=== PATIENT | female | born 1985 | race African-American/Black ===

== ENCOUNTER 2017-03-25 16:12 | Emergency (ER) | payer OTHER ==
[~2017-03-25] VITALS: Ht 162.6 cm; Wt 107.7 kg
[2017-03-25 16:15] VITALS: TEMP 37; Ht 162.6 cm; Wt 107.7 kg
[2017-03-25] MEDS ORDERED: PIPERACILLIN/TAZOBACTAM 4.5 GM/100ML D5W IV STA (16:45)
[2017-03-25] MEDS ORDERED: VNTHFA/IN INH (16:48)
[2017-03-25] MEDS ORDERED: SYMIN/8045 INH (16:48)
[2017-03-25] MEDS ORDERED: CYCL-376 PO (16:48)
[2017-03-25] MEDS ORDERED: TRAZ50TA35 PO (16:48)
[2017-03-25] MEDS ORDERED: SERT50TA PO (16:48)
[2017-03-25] MEDS ORDERED: OXYC-57 PO (16:48)
[2017-03-25] MEDS ORDERED: MELO7.5T5 PO (16:48)
[2017-03-25] MEDS ORDERED: MONT1TAB3 PO (16:48)
[2017-03-25] MEDS ORDERED: MULT-506 PO (16:49)
[2017-03-25 16:52] LABS: COMPLETE YES; EOS % 1.8 %; HEMATOCRIT 36.5 % (37-47); IG% 0.2 %; LYMPH % 43.7 %; LYMPH ABS # 2.16 K/uL (1.2-3.4); MEAN CELL VOLUME 96.8 fL (80-100); MEAN CORPUSCULAR HEMOGLOBIN 33.4 pg (25-34); MEAN CORPUSCULAR HGB CONC 34.5 g/dl (32-36); MEAN PLATELET VOLUME 8.1 fL (7.4-10.4); MONO % 5.3 %; PLATELET COUNT 449 K/uL (130-400); RED BLOOD COUNT 3.77 M/uL (4.2-5.4); WHITE BLOOD COUNT 4.94 K/uL (4.8-10.8)
[2017-03-25 17:12] LABS: C-REACTIVE PROTEIN 1.16 mg/dl (0-0.29); CALCIUM 8.8 mg/dl (8.5-10.1); CREATININE 0.71 mg/dl (0.60-1.20); POTASSIUM 3.8 mmol/L (3.5-5.1)
--- NOTE | 2017-03-25 17:22 | DIAGNOSTIC IMAGING REPORT ---
LEFT FINGER(S) MIN 2 VIEWS ROUTINE CLINICAL HISTORY: 31 years-old Female presenting with L index finger cat bite. TECHNIQUE: Frontal, oblique, and lateral views of the second left finger were obtained. COMPARISON: None. FINDINGS: No soft tissue abnormality or soft tissue emphysema is appreciable. No acute fracture or malalignment. IMPRESSION: No acute osseous injury of the left second finger. Electronically signed by: Perry Jimenes M.D. 03/25/2017 5:21 PM Dictated Date/Time: 03/25/2017 5:20 PM
[2017-03-25 17:49] VITALS: BP 143/98; PULSE 73; O2SAT 100
--- NOTE | 2017-03-27 11:29 | EMERGENCY ROOM VISIT NOTE ---
ED Visit Note First contact with patient: 16:19 Chief Complaint: My cat bit my left index finger. History of Present Illness: Ms. Muñoz is a 31-year-old white female who ambulates into the ED complaining of a cat bite to the distal aspect of the left index finger. Patient reports 3 days ago her immunized cat bit her left index finger. She was seen at a local urgent care center and prescribed Augmentin. She reports since that time she does not feel like her finger is healing well and is expressing concerns about a possible infection even though she is on antibiotics. Currently she is complaining of a throbbing and pressure sensation over the distal aspect of the left index finger. She rates her discomfort 5/10. The pain is nonradiating. Her pain worsens with palpation and flexion and extension of the index fingers DIP joint. She has not identified any alleviating factors related to the pain. She reports she has been taken ibuprofen without relief of her discomfort. Additionally patient reports she has been squeezing her finger and has been expressing pus like material out of one of her puncture wounds. Associated with her pain she reports she has been having chills but no jenifer fever. She denies headache, dizziness, lightheadedness, upper respiratory tract symptoms, decreased appetite, abdominal pain, nausea, vomiting, extremity weakness/numbness/tingling. Review of Systems: As noted above in history of present illness. 8 body systems were reviewed and found to be negative as noted above. Past Medical History: Asthma, bronchitis, pneumonia. Current Medications: Medications Dose Route/Sig Max Daily Dose Days Date Category Dose Instructions Multivitamin (Multivitamins) Tab 1 Tab PO DAILY 03/25/17 Reported Percocet 5MG/325MG (Oxycodone/Acetaminophen) Tab 0.5-1 Tablet PO Q12 PRN 03/25/17 Reported PAIN Mobic (Meloxicam) 7.5 Mg Tab 7.5 Mg PO Q12 PRN 03/25/17 Reported Trazodone (Trazodone HCl) Unknown Strength Tab 1 Tab PO QPM PRN 03/25/17 Reported Cyclobenzaprine Hcl Unknown Strength Tab Unknown Dose PO QPM PRN 03/25/17 Reported Ventolin Hfa (Albuterol) 200 Puffs/67434 Mcg Aers 1 Puff INH DAILY PRN 03/25/17 Reported Symbicort 80/4.5 Inhaler (Budesonide/Formoterol Fumarate) Aero 1 Puff INH BID 03/25/17 Reported Zoloft (Sertraline HCl) Unknown Strength Tab 1 Tab PO QPM 30 03/25/17 Reported Singulair (Montelukast Sodium) 10 Mg Tab 10 Mg PO QPM 03/25/17 Reported Allergies to Medications: Patient denies. Social History: Patient is currently employed; she feels safe in her home environment; she denies tobacco use and admits to social alcohol use. Physical Examination: Vital Signs: Date Time Temp Pulse Resp B/P (MAP) Pulse Ox O2 Delivery O2 Flow Rate FiO2 03/25/17 17:49 73 20 143/98 100 03/25/17 16:15 37.0 59 18 130/84 96 Room Air GENERAL: 31-year-old female in mild distress due to pain, nontoxic-appearing, afebrile and hemodynamically stable. NEUROLOGICAL: Awake, alert and oriented to person, place and time. Answering questions appropriately and following commands. Normal gait. Good hand eye coordination. No focal motor sensory deficits. SKIN: Warm, dry and pink. Left Index Finger: 2 puncture wounds noted over the distal phalanx. Surrounding the distal finger there is mild erythema and edema. No blood or pus under the nail. No lymphangitis. HEENT: Atraumatic and normocephalic. THORAX: Lungs sounds are clear to auscultation and equal bilaterally with symmetrical chest wall. ABDOMEN: Flat, soft and nontender. Positive bowel sounds in all quadrants. LEFT UPPER EXTREMITY: Hand: No gross bony deformity. Soft tissue injuries as noted above. No tenderness or bony deformity over the DIP joint. Mild tenderness of the extensor tendon as you palpate up the finger to the mid hand. There is no erythema or edema over the tendon. Throughout the finger the skin was warm and pink and capillary refill is brisk. She was able to distinguish light sensations through all dermatomes. ED Course: Patient is assessed as noted above. Patient's medication list was reviewed. Laboratory Testing: Test 03/25/17 16:43 Range/Units White Blood Count 4.94 4.8-10.8 K/uL Red Blood Count 3.77 4.2-5.4 M/uL Hemoglobin 12.6 12.0-16.0 g/dL Hematocrit 36.5 37-47 % Mean Corpuscular Volume 96.8 80-100 fL Mean Corpuscular Hemoglobin 33.4 25-34 pg Mean Corpuscular Hemoglobin Concent 34.5 32-36 g/dl Platelet Count 449 130-400 K/uL Mean Platelet Volume 8.1 7.4-10.4 fL Neutrophils (%) (Auto) 49.0 % Lymphocytes (%) (Auto) 43.7 % Monocytes (%) (Auto) 5.3 % Eosinophils (%) (Auto) 1.8 % Basophils (%) (Auto) 0.0 % Neutrophils # (Auto) 2.42 1.4-6.5 K/uL Lymphocytes # (Auto) 2.16 1.2-3.4 K/uL Monocytes # (Auto) 0.26 0.11-0.59 K/uL Eosinophils # (Auto) 0.09 0-0.5 K/uL Basophils # (Auto) 0.00 0-0.2 K/uL RDW Standard Deviation 43.3 36.4-46.3 fL RDW Coefficient of Variation 12.2 11.5-14.5 % Immature Granulocyte % (Auto) 0.2 % Immature Granulocyte # (Auto) 0.01 0.00-0.02 K/uL Erythrocyte Sedimentation Rate 27 0-21 mm/hr Sodium Level 138 136-145 mmol/L Potassium Level 3.8 3.5-5.1 mmol/L Chloride Level 106 98-107 mmol/L Carbon Dioxide Level 26 21-32 mmol/L Anion Gap 6.0 3-11 mmol/L Blood Urea Nitrogen 14 7-18 mg/dl Creatinine 0.71 0.60-1.20 mg/dl Est Creatinine Clear Calc Drug Dose 135.1 ml/min Estimated GFR () 129.7 Estimated GFR (Non- 111.9 BUN/Creatinine Ratio 20.0 10-20 Random Glucose 87 70-99 mg/dl Calcium Level 8.8 8.5-10.1 mg/dl C-Reactive Protein 1.16 0-0.29 mg/dl Left Index Finger X-Rays: Were read by myself and the radiologist and shows no acute fractures or dislocations. No soft tissue abnormality or emphysema. An IV lock was initiated and patient received 4.5 g of Zosyn IV for antibiotic coverage. Patient was offered pain medications and refused. Patient's index finger was placed in a metal splint. Patient's case was reviewed with Dr. Victor; we agreed on diagnostic approach , treatment, disposition and plan. Patient was educated about today's findings and instructed on her treatment plan ; she verbalizes understanding and agreement with this plan. Clinical Impression: Left index finger cat bite. Decision-Making: Initially my differential diagnosis I considered cat bite cellulitis, foreign body, tenosynovitis, paronychia and other causes. Disposition: Patient discharged home in stable condition; prior to departure she was reassessed and subjectively reported she was feeling the same. Plan: Patient was encouraged to alternate ibuprofen and acetaminophen as needed for pain. Patient was encouraged to continue her antibiotics until completed. Patient was encouraged to use her finger splint until recheck. Patient was encouraged to avoid cleaning with peroxide and use simple soap and water. Patient was encouraged to stop squeezing or fingers. Patient was educated on signs of worsening infection. Patient was encouraged to return to the ED in 36-48 hours for recheck. Patient was encouraged return to the ED sooner for worsening signs of infection or any new/concerning symptoms.
== END 2017-03-25 17:48 | disposition home or self-care (01) ==
LOC: C.EDB 16:13 → C.EDD 17:48
DX: S61.251D Open bite of left index finger without damage to nail, subsequent encounter (principal); W55.01XA Bitten by cat, initial encounter; J45.909 Unspecified asthma, uncomplicated; Z87.01 Personal history of pneumonia (recurrent); Z79.899 Other long term (current) drug therapy

== ENCOUNTER 2017-03-28 15:26 | Emergency (ER) | payer OTHER ==
[~2017-03-28] VITALS: Ht 163.8 cm; Wt 109.0 kg
[~2017-03-28 15:26] MED LIST: CYCL-376 PO; MELO7.5T5 PO; MONT1TAB3 PO; MULT-506 PO; OXYC-57 PO; SERT50TA PO; SYMIN/8045 INH; TRAZ50TA35 PO; VNTHFA/IN INH
[2017-03-28 15:28] VITALS: BP 138/90; PULSE 73; TEMP 37; O2SAT 99; Ht 163.8 cm; Wt 109.0 kg
[2017-03-28] MEDS ORDERED: AMOX875T PO (15:51)
--- NOTE | 2017-03-29 16:05 | EMERGENCY ROOM VISIT NOTE ---
ED Visit Note First contact with patient: 15:31 Chief Complaint: Cat bite wound follow-up. History of Present Illness: Ms. Muñoz is a 31-year-old white female who ambulates into the ED for recheck of her cat bite wound to her left index finger. I had seen this patient 2 days ago. She subjectively reports she is feeling better today. She had noted decreased swelling and redness of the distal phalanx of the index finger and a decrease in pain. Currently she describes her pain as a pressure sensation over the distal phalanx of the left index finger. She rates her discomfort 3/10. Her pain is no longer radiating of the posterior finger and into the hand. Her pain worsens with palpation. She has not been taken any medications for pain prior to arrival at the hospital. She denies any associated symptoms including fevers , chills, sweats, worsening drainage,, decreased appetite, nausea/vomiting, finger weakness/numbness/tingling. Review of Systems: As noted above in history of present illness. 5 body systems were reviewed and found to be negative as noted above. Past Medical History: Asthma, bronchitis, pneumonia. Current Medications: Augmentin, Singulair, albuterol, trazodone, cyclobenzaprine , trazodone, meloxicam, Percocet. Allergies to Medications: Patient denies. Social History: Patient is employed; she feels safe in her home environment; she denies tobacco use. Physical Examination: Vital Signs: Date Time Temp Pulse Resp B/P (MAP) Pulse Ox O2 Delivery O2 Flow Rate FiO2 03/28/ 15:28 37.0 73 20 138/90 99 Room Air GENERAL: 31-year-old female in mild distress due to pain, nontoxic-appearing, afebrile and hemodynamically stable. NEUROLOGICAL: Awake, alert and oriented to person, place and time. Answering questions appropriately and following commands. SKIN: Warm, dry and pink. Left Index Finger: No gross bony deformity. Improvement in edema and erythema surrounding the base of the fingernail. No purulent drainage from her puncture wounds. No lymphangitis. ED Course: Patient is assessed as noted above. Patient's medication list was reviewed. Patient was educated about today's findings and instructed on her treatment plan ; she verbalized understanding and agreement with this plan. Clinical Impression: Improving cat bite infection to the left index finger. Disposition: Patient discharged home in stable condition; prior to departure she was reassessed and subjectively reported she was feeling the same. Plan: Patient was encouraged to continue her current treatment plan and her personal medications as prescribed. Patient was encouraged to follow-up with her PCP at the end of the course of antibiotics. Patient was encouraged return ED for worsening signs of infection or any new/ concerning symptoms.
== END 2017-03-28 16:04 | disposition home or self-care (01) ==
LOC: C.EDB 15:28 → C.EDD 16:04
DX: Z09 Encounter for follow-up examination after completed treatment for conditions other than malignant neoplasm (principal); L08.9 Local infection of the skin and subcutaneous tissue, unspecified; S61.251D Open bite of left index finger without damage to nail, subsequent encounter; W55.01XD Bitten by cat, subsequent encounter; J45.909 Unspecified asthma, uncomplicated; Z87.01 Personal history of pneumonia (recurrent); Z79.899 Other long term (current) drug therapy

== ENCOUNTER → 2017-07-13 | Outpatient (CLI) | payer OTHER | END | disposition home or self-care (01) | LOC: C.PAPS 10:00 | PROVIDERS: ATTEND Obstetrics & Gynecology | DX: Z12.4 Encounter for screening for malignant neoplasm of cervix (principal) ==

== ENCOUNTER 2017-08-22 18:07 | Emergency (ER) | payer OTHER ==
[~2017-08-22] VITALS: Ht 162.6 cm; Wt 104.8 kg
[2017-08-22 18:27] VITALS: TEMP 37; Ht 162.6 cm; Wt 104.8 kg
[2017-08-22] MEDS ORDERED: DEXAMETHASONE SOD INJ 4 MG/ML 5 ML VIAL IM STA (18:41)
[2017-08-22] MEDS ORDERED: KETOROLAC TROMETHAMINE 60 MG/2 ML VIAL IM STA (18:41)
[2017-08-22] MEDS ORDERED: MOME200A INH (19:01)
[2017-08-22] MEDS ORDERED: NAPR1TAB9 PO (19:01)
[2017-08-22] MEDS ORDERED: ACET-1256 PO (19:01)
[2017-08-22] MEDS ORDERED: [UNRECOGNIZED DRUG - CODE] TOP (19:01)
[2017-08-22] MEDS ORDERED: MELO15TA4 PO (19:01)
[2017-08-22] MEDS ORDERED: CYCL10TA6 PO (19:01)
[2017-08-22] MEDS ORDERED: DEXAMETHASONE SOD INJ 10 MG/ML VIAL IM ONE (19:15)
--- NOTE | 2017-08-22 19:44 | EMERGENCY ROOM VISIT NOTE ---
ED Visit Note First contact with patient: 18:31 CHIEF COMPLAINT: Low back pain HISTORY OF PRESENT ILLNESS: This 32-year-old female presents the ER with chief complaint of increased low back pain radiating into her left leg. The patient states that she has chronic low back pain for which she doing physical therapy for currently. The patient states last night she felt a sharp pain in her left buttocks and pain radiating into her hip and partially down her posterior leg. The patient denies any numbness and tingling in the leg. She states the pain also radiates across her lower back to the right side. The patient denies any right leg pain or numbness and tingling. The patient denies a loss of bowel or bladder control or any saddle anesthesia. The patient denies any urinary symptoms or any history of kidney stones. The patient denies any nausea or vomiting. The patient states she took a muscle relaxer last night and this morning without any relief. She has not taken anything else for pain. REVIEW OF SYSTEMS: 6 system review was performed and was negative unless stated otherwise in history of present illness. PMH: The patient is healthy; chronic back pain asthma, ovarian cysts SOCIAL HISTORY: Patient lives alone. The patient denies any tobacco use but admits to occasional alcohol use. PHYSICAL EXAM: Vital Signs normal: Reviewed Nurse's notes and agree. GEN.: 32- year-old female appears in no acute distress. MENTAL STATUS: Alert and oriented in no acute distress. BACK: No CVA tenderness noted. ABDOMEN: Positive bowel sounds all 4 quadrants soft, nontender to palpation without megaly or masses. LUMBAR SPINE: No gross bony abnormality noted. Patient is nontender to palpation over the spinous processes. She is tender to palpation over the left paravertebral region, right side nontender. She has limited range of motion with flexion and extension.. Muscle strength is 5 out of 5 bilateral lower extremities and symmetrical. NEURO: Patient is able to heel and toe walk without difficulty. I lateral patellar and Achilles reflexes are 2+. Sensation is intact to pinprick bilateral lower extremities. Negative straight leg raise bilaterally. EMERGENCY DEPARTMENT COURSE: The patient was evaluated. The patient was given Toradol 60 mg IM and Decadron 10 mg IM. The patient was reevaluated and was feeling better. The patient was discharged home in stable condition. DIAGNOSIS: Low back pain with left sciatica DISCHARGE INSTRUCTIONS AND TREATMENT: Take Decadron as prescribed. Ibuprofen 600 mg every 6 hours with food for pain. Take Monitor as needed for more severe pain. If symptoms persist or worsen, follow-up with your family doctor. Current/Historical Medications Scheduled Montelukast Sodium (Singulair), 10 MG PO QPM Sertraline (Zoloft), 50 MG PO QPM Scheduled PRN Acetaminophen (Tylenol), 1,000 MG PO Q6H PRN for Pain Albuterol Hfa (Ventolin Hfa), 2 PUFFS INH QID PRN for Wheezing Budesonide/Formoterol Fumarate (Symbicort 80/4.5 Inhaler), 1 PUFF INH BID PRN for Shortness of Breath Cyclobenzaprine Hcl (Flexeril), 10 MG PO TID PRN for Muscle Spasm Meloxicam (Mobic), 15 MG PO DAILY PRN for Pain Metronidazole (Topical) (Rosadan), 1 APPLN TOP BID PRN for Rosacea Mometasone Furoate-Formoterol (Dulera 200/5 Mcg), 2 PUFFS INH BID PRN for SOB/ Wheezing Naproxen (Aleve), 220 MG PO UD PRN for Pain Trazodone Hcl (Trazodone), 50 MG PO HS PRN for Sleep Allergies Coded Allergies: No Known Allergies (Unverified , 03/28/17) Vital Signs Date Time Temp Pulse Resp B/P (MAP) Pulse Ox O2 Delivery O2 Flow Rate FiO2 08/22/17 18:27 37.0 85 18 151/79 99 Room Air Medications Administered Medications (Trade) Dose Ordered Sig/Regina Route Start Time Stop Time Status Last Admin Dose Admin Ketorolac Tromethamine (Toradol Inj) 60 mg NOW STAT IM 08/22/17 18:41 08/22/17 18:42 DC 08/22/17 19:27 60 MG Dexamethasone Sodium Phosphate (Decadron Inj) 10 mg NOW ONCE IM 08/22/17 19:15 08/22/17 19:16 DC 08/22/17 19:27 10 MG Departure Information Referrals No Doctor, Assigned (PCP) Patient Instructions [facility]
[2017-08-22] MEDS ORDERED: HYDR-5688 PO (19:52)
[2017-08-22] MEDS ORDERED: METH4PAK PO (19:52)
[2017-08-22 20:06] VITALS: BP 150/97; PULSE 73; O2SAT 100
== END 2017-08-22 20:06 | disposition home or self-care (01) ==
LOC: C.EDB 18:08 → C.EDD 20:06
DX: M54.42 Lumbago with sciatica, left side (principal)

== ENCOUNTER → 2017-09-02 | Outpatient (CLI) | payer OTHER ==
[~2017-09-02] MED LIST changes: +ACET-1256 PO; -CYCL-376 PO; +CYCL10TA6 PO; +HYDR-5688 PO; +MELO15TA4 PO; -MELO7.5T5 PO; +MOME200A INH; -MULT-506 PO; +NAPR1TAB9 PO; -OXYC-57 PO; +[UNRECOGNIZED DRUG - CODE] TOP
== END | disposition home or self-care (01) ==
LOC: C.LAB1850 15:16
PROVIDERS: ATTEND Physician Assistant
DX: N92.6 Irregular menstruation, unspecified (principal)

== ENCOUNTER → 2017-10-05 | Outpatient (CLI) | payer OTHER ==
[~2017-10-05] MED LIST changes: +MELO-84 PO; -MELO15TA4 PO
[2017-10-05 18:32] LABS: PROLACTIN 17.31 ng/mL
[2017-10-05 18:33] LABS: FOLLICLE STIMULAT HORMONE 1.99 IU/L; LUTEINIZING HORMONE 4.65 IU/L
== END | disposition home or self-care (01) ==
LOC: C.LAB 17:33
PROVIDERS: ATTEND Obstetrics & Gynecology
DX: N92.6 Irregular menstruation, unspecified (principal)

== ENCOUNTER → 2017-11-02 | Outpatient (CLI) | payer OTHER | END | disposition home or self-care (01) | LOC: C.LAB 18:02 | PROVIDERS: ATTEND Obstetrics & Gynecology | DX: E28.8 Other ovarian dysfunction (principal) ==

== ENCOUNTER → 2017-12-09 | Outpatient (CLI) | payer OTHER | END | disposition home or self-care (01) | LOC: C.LAB 15:54 | PROVIDERS: ATTEND Obstetrics & Gynecology | DX: E28.8 Other ovarian dysfunction (principal) ==

== ENCOUNTER → 2018-03-06 | Outpatient (CLI) | payer OTHER ==
[~2018-03-06] MED LIST changes: -HYDR-5688 PO
== END | disposition home or self-care (01) ==
LOC: C.LAB 18:09
PROVIDERS: ATTEND Obstetrics & Gynecology
DX: E28.8 Other ovarian dysfunction (principal)

== ENCOUNTER → 2018-03-20 | Outpatient (CLI) | payer OTHER ==
--- NOTE | 2018-03-20 12:34 | OPERATIVE REPORT ---
DATE OF OPERATION: 03/20/2018 PROCEDURE: Hysterosalpingogram. INDICATIONS FOR SURGERY: Severe dysmenorrhea, pelvic pain. PREOPERATIVE DIAGNOSIS: Suspected blockage of fallopian tubes. POSTOPERATIVE DIAGNOSIS: Same. SURGEON: Ildefonso Eric MD. ESTIMATED BLOOD LOSS: Zero. OPERATIVE FINDINGS AND PROCEDURE: Patient was brought to the fluoroscopy suite. The cervix was visualized with a speculum, it was cleaned with a Betadine solution, grasped with single tooth tenaculum at 12 o'clock. Uterus was sounded. We had difficulty getting the dye into the cervix. We had to make several attempts. I finally was able to get the dye into the uterine cavity. I descended uterine cavity but could not get any spillage on either side despite several attempts at doing it. There was some evidence of hydrosalpinx on the left. Patient tolerated procedure well, and was instructed to call the office for a followup visit. I attest to the content of the Intraoperative Record and any orders documented therein. Any exception s are noted below.
--- NOTE | 2018-03-20 12:37 | DIAGNOSTIC IMAGING REPORT ---
HYSTEROSALPINGOGRAM CLINICAL HISTORY: Infertility testing. COMPARISON STUDY: Pelvic ultrasound dated 09/14/2017. FINDINGS: Fluoroscopic assistance was provided to the simulation software engineer in performing a hysterosalpingogram. 8 spot fluoroscopic images were saved. The uterine cavity distends normally, with no filling defects identified. Contrast rapidly evacuated the uterine cavity into the cervix and there is only partial filling of the fallopian tubes. There is dilatation of the left fallopian tube. No spillage of contrast was identified into the pelvis. Fluoroscopy time: 0.9 minutes. IMPRESSION: 1. The uterine cavity was normal in appearance. 2. Contrast rapidly spilled from the uterine cavity back into the cervix, and there was only partial filling of the fallopian tubes. 3. The left fallopian tube appears dilated. 4. No spillage of contrast was identified into the pelvis. Patency of the tubes was not confirmed. Electronically signed by: Maik Escobar M.D. 03/20/2018 12:36 PM Dictated Date/Time: 03/20/2018 12:34 PM
== END | disposition home or self-care (01) ==
LOC: C.RAD 10:26
PROVIDERS: ATTEND Obstetrics & Gynecology
DX: N70.11 Chronic salpingitis (principal)

== ENCOUNTER 2023-08-10 09:42 | Observation (INO) ==
--- NOTE | 2023-08-10 10:14 | XRay Report ---
SINGLE VIEW CHEST CLINICAL HISTORY: Atypical chest pain. FINDINGS: An AP, portable, upright chest radiograph is compared to study dated 07/18/2023. The cardio mediastinal silhouette is unremarkable. The lungs and pleural spaces are clear. No pneumothorax is se en. The bony thorax is grossly intact. IMPRESSION: No active disease in the chest. ACT 112: Negative or not required by law. Electronically signed by: Maik Escobar M.D. 08/10/2023 10:13 AM
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
[2023-08-10 10:59] LABS: Basophils # (auto) 0.02 K/uL (0.00-0.20); Basophils % (auto) 0.4 %; Eosinophils # (auto) 0.03 K/uL (0.00-0.50); Eosinophils % (auto) 0.6 %; Hematocrit (blood only) 42.5 % (37.0-47.0); Hemoglobin 14.1 g/dl (12.0-16.0); Immature Granulocytes # (auto) 0.01 K/uL (0.01-0.20); Immature Granulocytes % (auto) 0.2 %; Lymphocytes # (auto) 1.15 K/uL (1.20-3.40); Lymphocytes % (auto) 22.4 %; Mean Corpuscular Hemoglobin 32.3 pg (25.0-34.0); Mean Corpuscular Hgb Conc 33.2 g/dL (32.0-36.0); Mean Corpuscular Volume 97.5 fL (80.0-100.0); Mean Platelet Volume 8.3 fL (9.4-12.4); Monocytes # (auto) 0.28 K/uL (0.11-0.59); Monocytes % (auto) 5.4 %; Neutrophils # (auto) 3.65 K/uL (1.40-6.50); Platelet Count 471 K/uL (130-400); RDW Standard Deviation 43.6 fL (36.4-46.3); Red Blood Count 4.36 M/uL (4.20-5.40); White Blood Count 5.14 K/ul (4.8-10.8)
[2023-08-10 11:23] LABS: Alanine Aminotransferase 15 U/L (7-52); Albumin Globulin Ratio 1.3 (0.9-2); Albumin Level 4.7 gm/dl (3.4-5.0); Alkaline Phosphatase 61 U/L (34-104); Anion Gap 8 (3-11); Aspartate Aminotransferase 17 U/L (13-39); Bilirubin,Total 0.6 mg/dl (0.2-1.0); Blood Urea Nitrogen 12 mg/dl (6-23); Calcium 9.2 mg/dl (8.6-10.3); Carbon Dioxide 24 mmol/L (21-32); Chloride 105 mmol/L (98-107); Creatinine Clr Calc Pharmacy 112.3 ml/min; Est GFR (African American) 115.6 ml/min; Est GFR (Non-African American) 99.7 ml/min; Globulin 3.6 gm/dl (2.5-4.0); Glucose 110 mg/dl (70-99(Fasting)); Potassium 3.7 mmol/L (3.5-5.1); Sodium 137 mmol/L (136-145); Total Protein 8.3 gm/dl (6.0-8.3)
[2023-08-10 11:28] LABS: Troponin I High Sensitivity < 2.3 pg/ml (0-14)
[2023-08-10 11:39] LABS: Prothrombin Time 11.4 Seconds (9.0-12.0)
[2023-08-10 11:46] LABS: Pregnancy Test, Serum Negative (Negative)
[2023-08-10] MEDS ORDERED: OPTIRAY 320 125ml IV ONE (12:23)
--- OUTSIDE RECORDS SUMMARY | 2023-08-10 12:35 | External Medical Summary | Summary of Care ---
Author Name Unknown Organization [facility] Address [address] [facility] [place] [address] Phone [phone] Care Team Providers Care Senior Technical Editor Name Role Phone Vashti Lucero DPRinku Primary Care Pr ovider Encounter Details Date Type Department Care Team (Late st Contact Info) Description 08/09/2023 Documentation Hematology/Oncology [facility] [address] [facility] [place] [address] Eren Velasco MD [address] [place] [address] Allergies Active Allergy Reactions Criticality Noted Date Comments Pollen Other (Please comment) 04/08/2023 Dust, mold Causes her asthma to flare up documented as of this encounter (statuses as of 08/09/2023) Medications Medication Sig Dispensed Refills Start Date End Date Status montelukast (SINGULAIR) 10 MG Tablet Take 1 tablet by mouth in the evening 5 10/30/2015 Active PROVENTIL HFA 108 (90 BASE) MCG/ACT inhaler Take 2 puffs every 4 to 6 hours as needed 4 08/28/2015 Active Multiple Vitamin (MULTI VITAMIN DAILY) TABS Take by mouth. 0 Active methocarbamol (ROBAMOL) 500 MG Tablet Take 1 Tablet by mouth in the morning and 1 Tablet at noon and 1 Tablet in the evening and 1 Tablet before bedtime. 0 Active Ferrous Sulfate 325 (65 Fe) MG Oral Tablet (Feosol) Take 1 Tablet by mouth daily with breakfast. 0 Active Fluticasone Propionate (Inhal) 100 MCG/BLIST Aerosol Powder Breath Activated Inhale 1 Puff by mouth in the morning and 1 Puff before bedtime. 0 Active busPIRone HCl 5 MG Oral Tablet (Buspar) 1 Tablet. 0 11/23/2022 Acti ve DULoxetine HCl 60 MG Oral Capsule Delayed Release Particles (Cymbalta) Take 1 Capsule by mouth in the morning. 0 Active Ondansetron 4 MG Oral Tablet Disintegrating (Zofran)Indications:Na usea vomiting and diarrhea Place 1 Tablet on tongue every 8 hours as needed for Nausea. dissolve on tongue. 20 Tablet 0 02/02/2023 Active documented as of this encounter (statuses as of 08/09/2023) Active Problems No known active problems documented as of this encounter (statuses as of 08/09/2023) Social History Tobacco Use Types Packs/Day Years Used Date Smoking Tobacco: Never Smokeless Tobacco: Never Alcohol Use Standard Drinks/Week Comments Yes 0 (1 standard drink = 0.6 oz pur e alcohol) social Sex and Gender Information Value Date Recorded Sex Assigned at Not on file Gender Identity Not on file Sexual Orientation Not on file Job Start Date Occupation Industry Not on file Not on file Not on file documented as of this encounter Progress Notes * Eren Velasco MD - 08/09/2023 3:52 PM EST Blood workup done on 07/18/2023: -WBC 4200, H&H of 12.8/38.4, Platelet count is around 484,000. -Ferritin level --> 73 -Serum iron 84, TIBC 322, iron saturation 26% Overall mild thrombocytosis for the last several years, no evidence of iron deficiency Will repeat CBCD, Ferritin, iron profile in about 4 months. documented in this encounter Plan of Treatment Upcoming Encounters Date Type Department Care Team (Late st Contact Info) Description 01/13/2024 3:15 PM EDT Office Visit Hematology/Oncology [facility] [place] [address] [place] [address] Eren Velasco MD [address] [facility] [place] [address] Health Maintenance Due Date Last Done Comments Hepatitis B (1 of 3 - 3-dose series) 1983 Lipid Panel 1983 Depression Screening 1995 HIV Screening 1998 Hepatitis C Screening 2001 DTaP,Tdap,and Td Vaccines (1 - Tdap) 2002 Pap Smear 2004 Cervical Cancer Screening 2013 HPV/Co-Test 2013 COVID-19 Vaccine (2 - 2022-2 4 season) 2023 02/06/2021 Influenza Vaccine (FLU shot) (#1) 2023 05/25/2017 Mammogram 2023 Diabetes Screening 01/28/2026 01/28/2023, 01/28/2023 GARDASIL-HPV IMMUNIZATION SERIES Aged Out No longer eligible b ased on patient's age to complete this topic MENINGOCOCCAL (MENACTRA/MENVEO) Aged Out No longer eligible b ased on patient's age to complete this topic Pneumococcal Vaccine: Pediatrics (0 to 5 Years) and At-Risk Patients (6 to 64 Years) Aged Out No longer eligible b ased on patient's age to complete this topic documented as of this encounter Medical Devices Not on filedocumented as of this encounter Care Teams Senior Technical Editor Relationship Specialty Start Date End Date Vashti Lucero DPM [address] [address] PCP - General Podiatry 11/08/22 documented as of this encounter
--- OUTSIDE RECORDS SUMMARY | 2023-08-10 12:35 | External Medical Summary | Continuity of Care Document ---
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 Name Role Phone Chanel Stock Primary Care Physician [phone] [id number] Date(s): 07/28/23 - 07/28/23 [facility] 0 [facility] [address] [place] [id number] [address] [phone] Encounter Diagnosis Hypertension(Discharge Diagnosis) - 07/28/23 Screening cholesterol level(Discharge Diagnosis) - 07/28/23 Discharge Disposition: Home or Self Care Attending Physician: DO Stock Stephanie Marie Allergies, Adverse Reactions, Alerts No Known Medication Allergies Substance Reaction Severity Status Mold 1 Seasonal Active 1mold, pollen, ragweed, trees, cats Immunizations Given and Recorded Vaccine Date Status Refusal Reason influenza virus vaccine, inactivated 07/14/23 Give n influenza virus vaccine, inactivated 07/08/22 Give n influenza virus vaccine, inactivated 06/19/21 Give n influenza virus vaccine, inactivated 07/21/20 Give n influenza virus vaccine, inactivated 04/11/19 Give n influenza virus vaccine, inactivated 05/30/18 Give n influenza virus vaccine, inactivated 05/25/17 Give n rabies vaccine, human diploid cell 10/06/21 Record ed SARS-CoV-2 (COVID-19) mRNA-1273 vaccine 1 07/16/21 Recorded SARS-CoV-2 (COVID-19) mRNA-1273 vaccine 03/06/21 R ecorded SARS-CoV-2 (COVID-19) mRNA-1273 vaccine 2 02/06/21 Recorded rabies vaccine 3 06/17/15 Recorded rabies vaccine 4 11/14/15 Recorded tetanus/diphtheria/pertuss, acel (Tdap) 5 06/03/15 Recorded 1Result Comment: 2021-09-07: Historical information-source unspecified 2Result Comment: [facility] pharmacy 3Result Comment: 2019-09-27: Historical information-source unspecified 4Result Comment: 2019-09-27: Historical information-source unspecified 5Result Comment: 2019-09-27: Historical information-source unspecified Medications Albuterol (Eqv-ProAir HFA) 90 mcg/inh inhalation aerosol Start: 02/08/23 16:29:00 EDT, 2 puff, inhaled, q6h, Disp# 8.5 g, INHALE 2 PUFFS 4 TIMES DAILY NEEDED FOR WHEEZING, PRN: wheezing, [id number] Start Date: 02/08/23 Status: Ordered Azelex 20% topical cream Start: 06/10/20 15:29:00 EST, 1 appl, topical, bid, Disp# 45 g, Refills: 0, [id number] Start Date: 06/10/20 Stop Date: 07/10/20 Status: Ordered DULoxetine 30 mg oral delayed release capsule Start: 07/14/23 17:18:00 EST, 1 cap, PO, Daily, Disp# 30 cap, Refills: 2, [id number] Start Date: 07/14/23 Stop Date: 10/12/23 Status: Ordered fluticasone-salmeterol 232 mcg-14 mcg/inh inhalation powder Start: 07/14/23 17:20:00 EST, 1 puff, inhaled, bid, Disp# 1 each, Refills: 3, Pharmacy: [facility]/pharmacy #[id number] Start Date: 07/14/23 Status: Ordered hydrOXYzine hydrochloride 25 mg oral tablet Start: 07/14/23 17:22:00 EST, 1 tab, PO, qid, Disp# 30 tab, PRN: as needed for anxiety, [id number] Start Date: 07/14/23 Status: Ordered Iron Start: 04/18/20 15:20:00 EDT, Iron, 325mg every other day Start Date: 04/18/20 Status: Ordered losartan 25 mg oral tablet Start: 07/28/23 16:25:00 EST, 1 tab, PO, Daily, Disp# 30 tab, Refills: 1, Pharmacy: [facility]/pharmacy #[id number] Start Date: 07/28/23 Stop Date: 09/26/23 Status: Ordered montelukast 10 mg oral tablet Start: 01/26/22 16:00:00 EDT, 1 tab, PO, qPM, Disp# 30 tab, Refills: 3, Pharmacy: [facility]/pharmacy #[id number] Start Date: 01/26/22 Stop Date: 05/26/22 Status: Ordered multivitamin Start: 11/21/20 15:35:00 EDT, 1 tab, PO, Daily Start Date: 11/21/20 Status: Ordered Zofran ODT 4 mg oral tablet, disintegrating Start: 07/14/23 17:21:00 EST, 1 tab, PO, bid, Disp# 20 tab, Refills: 0, PRN: as needed for nausea/vomiting, [id number] Start Date: 07/14/23 Status: Ordered Mental Status 07/28/23 Barriers to Learning one year None evide nt Mandatory Health Literacy Documentation Yes Health Literacy Communication Barriers N ever Primary Language Korean Problem List Condition Confirmation Course Effective Dates Status H ealth Status Informant Asthma Confirmed Active Weight disorder Confirmed Active Carpal tunnel syndrome, bilateral Confirmed Active Chronic low back pain Confirmed Active Impaired fasting glucose Confirmed Active Sacroiliitis Confirmed Active Elevated MCV Confirmed Active Mixed anxiety and depressive disorder Confirmed Active Class 2 obesity in adult Confirmed Active Rosacea Confirmed Active Thrombocytosis Confirmed Active Diagnosis Diagnosis Type Effective Dates Health Status Clinical Service Informant Screening cholesterol level Discharge Diagnosis 07/28/23 Non-Specified Hypertension Discharge Diagnosis 07/28/23 Non-Specified Procedures Procedure Date Related Diagnosis Body Site Status Plain X-ray of left ribs 1 08/19/22 Completed Cyst of fallopian tube Co mpleted 1Impression: No evidence of acute fracture r other acute abnormalities in the visualized portion of the chest Vital Signs Most recent to oldest [Reference Range]: 1 Patient Weight 92.1 kg (07/28/23 4:00 PM) Heart Rate 76 bpm (07/28/23 4:00 PM) Respiratory Rate 12 br/min (07/28/23 4:00 PM) Blood Pressure 164/102mmHg (07/28/23 4:00 PM) Social History Social History Type Response Smoking Status Never smoked cigaret dolores Sex Female Patient Care team information Care Team Personnel Name: DO Stock Stephanie Marie Position: Physician - Family Med Member Role: Primary Care Provider Address: Address: [address] [facility] [address] [place] [address] Care Team Related Persons Name: ELDA BETTS
--- NOTE | 2023-08-10 12:44 | CT Scan Report ---
CT ANGIOGRAM OF THE NECK CLINICAL HISTORY: Strokelike symptoms. Dizziness. Left-sided numbness. COMPARISON STUDY: No priors. TECHNIQUE: Following the IV administration of 115 of Optiray 320, CT angiogram of the neck was perfor med from the aortic arch to the skull base. Images are reviewed in the axial, sagittal, and coronal p lanes. 3-D MIPS images are created and assessed. IV contrast was administered without complication. A ll measurements were calculated based on NASCET criteria. A dose lowering technique was utilized adh ering to the principles of ALARA. CT DOSE: 1020.12 mGy.cm FINDINGS: Thoracic aorta: Visualized portions of the thoracic aorta are normal in caliber. The aortic arch demo nstrates standard 3-vessel anatomy. Right carotid arterial system: The right common carotid artery is widely patent, as are the right int ernal and external carotid arteries. Left carotid arterial system: The left common carotid artery is widely patent, as are the left nutrition intern al and external carotid arteries. Vertebral arteries: Widely patent bilaterally noting left-sided dominance. Subclavian arteries: Widely patent bilaterally. Intracranial vasculature: The visualized intracranial vessels at the skull base are patent. Jugular veins: Widely patent bilaterally. Brain parenchyma: The visualized brain parenchyma the skull base is within normal limits. Lung apices: Partially visualized upper lobe lung parenchyma appears clear. Soft tissues: The visualized pharyngeal soft tissues are normal in appearance noting angiographic pha se technique. The oropharyngeal airway appears widely patent. The salivary and thyroid glands are nor mal in appearance. No cervical lymphadenopathy is seen. Skeletal structures: The visualized calvarium at the skull base appears intact. The imaged cervical s pine is within normal limits. Sinuses and mastoids: The visualized paranasal sinuses are clear. The mastoid air cells are well pneu matized. Cerumen is noted in the right external auditory canal. IMPRESSION: Unremarkable CT angiogram of the neck. ACT 112: Negative or not required by law. Electronically signed by: Maik Escobar M.D. 08/10/2023 12:42 PM
--- NOTE | 2023-08-10 12:50 | CT Scan Report ---
CT OF THE HEAD WITHOUT CONTRAST CLINICAL HISTORY: dizziness; L side numbness COMPARISON STUDY: No previous studies for comparison. TECHNIQUE: Helical axial images of the head were obtained without IV contrast. Automated exposure con trol was utilized for the study. A dose lowering technique was utilized adhering to the principles o f ALARA. FINDINGS: No acute intracranial hemorrhage, midline shift or mass effect is present. The ventricular system is unremarkable. The basal cisterns are patent. No extra-axial collections are present. There are no findings to suggest acute dural sinus thrombosis or acute territorial infarct. No significant calvarial abnormalities are present. Mucous retention cyst versus polyp within the left maxillary sin us is incidentally noted. IMPRESSION: No acute intracranial findings. ACT 112: Negative or not required by law. Electronically signed by: Dashawn Georges M.D. 08/10/2023 12:49 PM
--- NOTE | 2023-08-10 12:55 | CT Scan Report ---
CTA ANGIOGRAPHY OF THE HEAD CLINICAL HISTORY: dizziness; L side numbness COMPARISON STUDY: No previous studies for comparison. TECHNIQUE: Helical axial images of the head were obtained following uneventful intravenous administr ation of 115 cc of Optiray. Sagittal and coronal reconstructions were viewed as well as maximal inten sity projections on an independent 3-D workstation. Automated exposure control was utilized for the study. A dose lowering technique was utilized adhering to the principles of ALARA. FINDINGS: No acute intracranial hemorrhage is identified. Ventricular system is unremarkable. Basal c isterns are patent. There are no extra axial collections. Suspected mucous retention cyst within the left maxillary sinus is incidentally noted. The bilateral M1, M2, A1 and A2 segments are patent. No c entral vessel occlusion is present. Left vertebral artery is dominant. Posterior circulation is intac t. There is no intracranial aneurysm or dissection. IMPRESSION: No large vessel occlusion. No intracranial aneurysm. ACT 112: Negative or not required by law. Electronically signed by: Dashawn Georges M.D. 08/10/2023 12:53 PM
[2023-08-10] MEDS ORDERED: LORazepam 1 MG/1 ML SYR ED Inj Use IV STA (13:01)
--- NOTE | 2023-08-10 13:45 | Electrocardiogram Report ---
Test Reason : Blood Pressure : / mmHG Vent. Rate : 073 BPM Atrial Rate : 073 BPM P-R Int : 154 ms QRS Dur : 086 ms QT Int : 412 ms P-R-T Axes : 035 018 031 degrees QTc Int : 453 ms Normal sinus rhythm Normal ECG No previous ECGs available Confirmed by Brian Valdez ([id number]) on 08/10/2023 1:45:40 PM Referred By: Confirmed By:Brian Valdez
--- NOTE | 2023-08-10 15:59 | Electrocardiogram Report ---
Test Reason : Blood Pressure : / mmHG Vent. Rate : 078 BPM Atrial Rate : 078 BPM P-R Int : 160 ms QRS Dur : 082 ms QT Int : 420 ms P-R-T Axes : 045 015 037 degrees QTc Int : 478 ms Normal sinus rhythm Nonspecific T wave abnormality Anteroseptal leads When compared with ECG of 10-AUG-2023 10:27, Confirmed by Brian Valdez ([id number]) on 08/10/2023 3:58:24 PM Referred By: Chanel Stock Confirmed By:Brian Valdez
[2023-08-10 16:08] LABS: Troponin I High Sensitivity < 2.3 pg/ml (0-14)
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
[2023-08-10 20:31] LABS: C Reactive Protein < 0.50 mg/dl (0-0.5)
[2023-08-10 21:07] LABS: Lyme Ab IgG w/WB Rflx Negative (Negative); Lyme Ab IgM w/WB Rflx Negative (Negative)
[2023-08-10] MEDS ORDERED: DICLOFENAC SODIUM 75 MG TABCR PO PRN (22:10)
[2023-08-10] MEDS ORDERED: hydrOXYzine HCl 25 MG TAB PO PRN (22:10)
[2023-08-10] MEDS ORDERED: POLYETHYLENE (MIRALAX) 17 GM PACK PO PRN (22:10)
[2023-08-10] MEDS ORDERED: ALBUTEROL HFA 8 GM INHALER INH PRN (22:10)
[2023-08-10] MEDS ORDERED: GADOBUTROL 65ML VIAL IV ONE (23:01)
[2023-08-10] MEDS: MONTELUKAST SODIUM 10 MG TABLET PO SCH (23:33)
--- NOTE | 2023-08-10 23:57 | Magnetic Resonance Report ---
Exam(s): MRI HEAD W/WO Contrast IV Amt: 9.2cc gadavist EXAM: MR Head Without and With Intravenous Contrast CLINICAL HISTORY: Reason for exam: L jaw pain, L face numbness. TECHNIQUE: Magnetic resonance images of the head/brain without and with intravenous contrast in multiple planes. Mild motion artifact. CONTRAST: Patient received 9.2cc gadavist of IV contrast COMPARISON: None. FINDINGS: Brain: No mass-effect or acute infarct. No acute or chronic hemorrhage. No abnormal enhancement or abnormal signal in the brain parenchyma. Ventricles: No hydrocephalus or midline shift. Bones/joints: No calvarial lesions. Soft tissues: No scalp hematoma. Sinuses: Clear. Mastoid air cells: No mastoid effusion. IMPRESSION: 1. No abnormal enhancement, acute infarct, bleed, or acute intracranial abnormality. Electronically signed by: Angela Wesley M.D. 08/10/23 23:56 PM
--- NOTE | 2023-08-11 00:15 | Magnetic Resonance Report ---
Exam(s): MRI C SPINE EXAM: MR Cervical Spine Without Intravenous Contrast CLINICAL HISTORY: Reason for exam: left arm shoulder numbness ?radiculopathy. TECHNIQUE: Magnetic resonance images of the cervical spine without intravenous contrast in multiple planes. COMPARISON: CTA neck done earlier. FINDINGS: Vertebrae: Mild discogenic marrow edema on the left at C5-6 indicates a more acute component to the degenerative change at this level. No other marrow edema or compression deformity. No discitis or osteomyelitis. Spinal cord: Normal signal. Soft tissues: No epidural abscess or hematoma. No interspinous ligamentous edema or prevertebral edema. DISCS/SPINAL CANAL/NEURAL FORAMINA: C2-C3: Unremarkable. C3-C4: Mild degenerative disc disease. C4-C5: Mild degenerative disc disease. C5-C6: Moderate circumferential disc and osteophyte, moderate left uncovertebral joint hypertrophy, with moderate left foraminal stenosis. C6-C7: Mild degenerative disc disease. C7-T1: Unremarkable. OTHER: No isolated disc herniation or central spinal stenosis. IMPRESSION: 1. Moderate degenerative disc disease at C5-6 with marrow edema, indicating a more acute component to the degenerative change at this level. Moderate left foraminal stenosis. 2. No disc herniation, abnormal cord signal or central spinal stenosis. Electronically signed by: Angela Wesley M.D. 08/11/23 00:15 AM
--- OUTSIDE RECORDS SUMMARY | 2023-08-11 04:10 | External Medical Summary | Summary of Care ---
Author Name Unknown Organization [facility] Address [address] [facility] [place] [address] Phone [phone] Care Team Providers Care Barkeep Name Role Phone Vashti Lucero DPR[facility] Pr ovider Reason for Visit * Reason Onset Date Comments Test Results Lab 08/10/2023 Encounter Details Date Type Department Care Team (Late st Contact Info) Description 08/10/2023 Telephone Hematology/Oncology [facility] [place] [address] [facility] [place] [address] Eren Velasco MD [address] [place] [address] Test Results Lab Allergies Active Allergy Reactions Criticality Noted Date Comments Pollen Other (Please comment) 04/08/2023 Dust, mold Causes her asthma to flare up documented as of this encounter (statuses as of 08/10/2023) Medications Medication Sig Dispensed Refills Start Date [...] as of this encounter (statuses as of 08/10/2023) Active Problems No known active problems documented as of this encounter (statuses as of 08/10/2023) Social History Tobacco Use Types Packs/Day Years [...] on file documented as of this encounter Miscellaneous Notes * Telephone Encounter - Feliciano Mcallister RN - 08/10/2023 10:06 AM EST Called patient and informed. * Telephone Encounter - Feliciano Mcallister RN - 08/10/2023 10:03 AM EST Blood workup done on 07/18/2023: -WBC [...] 01/13/2024 3:15 PM EDT Office Visit Hematology/Oncology [facility] [place] [address] [facility] [place] [place] [address] Eren Velasco MD [address] [facility] [place] [address] Health Maintenance Due Date Last Done Comments [...] filedocumented as of this encounter Care Teams Barkeep Relationship Specialty Start Date End Date Vashti Lucero DPM [address] [place] [address] PCP - General Podiatry 11/08/22 documented as of this encounter
[2023-08-11 06:55] LABS: Hematocrit (blood only) 38.5 % (37.0-47.0); Hemoglobin 12.9 g/dl (12.0-16.0); Mean Corpuscular Hemoglobin 32.8 pg (25.0-34.0); Mean Corpuscular Hgb Conc 33.5 g/dL (32.0-36.0); Mean Platelet Volume 8.4 fL (9.4-12.4); Platelet Count 439 K/uL (130-400); RDW Coefficient of Variation 12.1 % (11.5-14.5); Red Blood Count 3.93 M/uL (4.20-5.40); White Blood Count 4.01 K/ul (4.8-10.8)
--- NOTE | 2023-08-11 07:05 | Hospitalist Progress Note ---
Date of Service August 11, 2023 Assessment & Plan (1) Chest pain: (2) Left-sided chest wall pain: (3) Depression: (4) Anxiety: (5) Asthma: (6) Pain in lower jaw: (7) Hypertension: Plan Pt is a 38 yo female with a past medical history of asthma, anxiety and depression, and thrombocytosis who presents to the hospital on 08/10/23 for L jaw pain radiating to neck and arm with associated numbness and with intermittent chest pain. Chest pain - pt notes intermittent episodes of 1 min sharp mid chest chest pain with heart flutter sensation - OP heart monitor done on 07/26, but not resulted - EKG wnl, trop negative x2, vitals stable - pending stress echo - consider pantoprazole on discharge if stress echo wnl Left jaw pain - with numbness, radiating down ipsilateral neck and arm - pt notes it started yesterday, has improved some but still numb feeling - head/neck CTA wnl, head CT normal - with increasing frequency of headaches, suspect this may be due to a complex migraine vs secondary to symptomatic hypertension - MRI brain w/wo contrast : No abnormal enhancement, acute infarct, bleed, or acute intracranial abnormality. - if MRI wnl, consider verapamil for complex migraine, as it will also help reduce her BP Left chest wall pain - pt notes migrating and intermittent tender nodule, gets one recurrent on L chest under breast but can get them anywhere - MR chest done in January, wnl per [facility] records - palpable soft soft tissue nodule that is exquisitely tender that migrates seems most indicative of fibromyalgia - continue home duloxetine #HTN - continue home losartan #Depression - continue home duloxetine #Anxiety - continue home hydroxyzine prn #Asthma - continue home albuterol - continue home montelukast - continue home fluticasone-salmeterol VTE Ppx: OOB IVF: none Extra lines/drains/catheters: none Dispo: Med surg+ tele Admission and Anticipated Discharge Date Admission Date: August 10, 2023 Results & Data Results & Data Vital Signs (Past 12 Hours) Vital Signs Temp Pulse Pulse Pulse Resp BP Pulse Ox 08/11/23 06:52 60 08/11/23 04:00 36.6 C 68 18 145/89 H 100 08/10/23 23:46 36.6 C 70 18 153/94 H 100 08/10/23 23:45 36.8 C 70 18 153/94 H 100 08/10/23 23:29 08/10/23 21:21 88 18 160/127 H 97 O2 Del Method 08/11/23 06:52 08/11/23 04:00 Room Air 08/10/23 23:46 Room Air 08/10/23 23:45 Room Air 08/10/23 23:29 Room Air 08/10/23 21:21 Room Air
[2023-08-11 07:21] LABS: Albumin Globulin Ratio 1.2 (0.9-2); Albumin Level 3.7 gm/dl (3.4-5.0); BUN Creatinine Ratio 15.7 (10-20); Basophils # (auto) 0.03 K/uL (0.00-0.20); Basophils % (auto) 0.7 %; Bilirubin,Total 0.8 mg/dl (0.2-1.0); Calcium 9.1 mg/dl (8.6-10.3); Creatinine Clr Calc Pharmacy 118.7 ml/min; Eosinophils # (auto) 0.09 K/uL (0.00-0.50); Eosinophils % (auto) 2.2 %; Est GFR (African American) 125.6 ml/min; Est GFR (Non-African American) 108.4 ml/min; Globulin 3.1 gm/dl (2.5-4.0); Immature Granulocytes # (auto) 0.01 K/uL (0.01-0.20); Immature Granulocytes % (auto) 0.2 %; Lymphocytes # (auto) 2.14 K/uL (1.20-3.40); Lymphocytes % (auto) 53.4 %; Monocytes # (auto) 0.36 K/uL (0.11-0.59); Neutrophils # (auto) 1.38 K/uL (1.40-6.50); Neutrophils % (auto) 34.5 %; Potassium 4.3 mmol/L (3.5-5.1); RBC Morphology Unremarkable; Total Protein 6.8 gm/dl (6.0-8.3)
[2023-08-11 07:36] LABS: Thyroid Stimulating Hormone 1.424 uIu/ml (0.300-4.500)
--- NOTE | 2023-08-11 08:15 | Billing Data ---
Date of Service August 10, 2023 Coding Level of Care Code 63144 INT INP/OBS CARE
[2023-08-11] MEDS: DULoxetine HCL 30 MG CAP PO SCH (08:54)
[2023-08-11] MEDS: FLUTICASONE/VILANTEROL 100/25MCG 14 PUFFS/INHALER INH SCH (08:54)
[2023-08-11] MEDS: LOSARTAN POTASSIUM 25 MG TAB PO SCH (08:54)
[2023-08-11] MEDS: FERROUS SULFATE 325 MG TAB PO SCH (08:54)
[2023-08-11] MEDS: ACETAMINOPHEN 325 MG TAB PO PRN (10:34)
--- NOTE | 2023-08-11 12:17 | XCELERA ---
[id number]
[2023-08-11] MEDS: ONDANSETRON INJ 2 MG/ML 2 ML VIAL IV PRN (13:06)
[2023-08-11] MEDS ORDERED: KETOROLAC TROMETHAMINE 10 MG TABLET PO STA (13:25)
[2023-08-11] MEDS ORDERED: amLODIPine BESYLATE 5 MG TAB PO ONE (15:15)
[2023-08-11] MEDS ORDERED: DEXAMETHASONE SOD INJ 4 MG/ML VIAL IV STA (15:37)
--- NOTE | 2023-08-11 15:57 | Medical Student Progress Note ---
Date of Service August 11, 2023 Assessment & Plan (1) Chest pain: (2) Left-sided chest wall pain: (3) Depression: (4) Anxiety: (5) Asthma: (6) Pain in lower jaw: (7) Hypertension: (8) Carpal tunnel syndrome: Plan Pt is a 38 yo female with a past medical history of asthma, anxiety and depression, and thrombocytosis who presents to the hospital on 08/10/23 for L jaw pain radiating to neck and arm with associated numbness and with intermittent chest pain. #Chest pain - pt notes intermittent episodes of 1 min sharp mid chest chest pain with heart flutter sensation - OP heart monitor done on 07/26, but not resulted - EKG wnl, trop negative x2, vitals stable - observed overnight on telemetry, no events - stress echo results showed mild LVH - continue hypertension workup outpatient with Dr. Levy to achieve blood pressure control #Left jaw pain - with numbness, radiating down ipsilateral neck and arm - pt notes it started yesterday, has improved some but still numb feeling - head/neck CTA wnl, head CT normal - MRI of brain normal, MRI of of cervical spine showed moderate degenerative disc disease at C5-6 with marrow edema, indicating a more acute component to the degenerative change at this level. Moderate left foraminal stenosis. -Order vitamin D level -Dr Solano recommended IV steroids, start 4mg Decadron, no surgical management now, outpatient follow up #Left chest wall pain - pt notes migrating and intermittent tender nodule, gets one recurrent on L chest under breast but can get them anywhere - MR chest done in January, wnl per [facility] records - palpable soft soft tissue nodule that is exquisitely tender that migrates seems most indicative of fibromyalgia - continue home duloxetine #HTN - continue home losartan - 5mg amlodipine, monitor sx overnight #Depression - continue home duloxetine #Anxiety - continue home hydroxyzine prn #Asthma - continue home albuterol - continue home montelukast - continue home fluticasone-salmeterol VTE Ppx: OOB IVF: none Extra lines/drains/catheters: none Dispo: Med surg+ tele Admission and Anticipated Discharge Date Admission Date: August 10, 2023 Supervising Attestation Attending Physician Supervision Note: I independently interviewed and examined the patient and verified the wright history and physical, reviewed labs and image studies and agree with findings and care plan noted above. Left side neck pain still persistent. chest pain better. headache + vitals noted nad heent nc at mmm breathing unlabored no accessory muscles good effort skin no rashes no pallor or icterus neuro no focal deficits. Chest pain - r/o ACS. Stress test negative. Pain likely MSK. left arm, neck and jaw pain - radicular. -pain control with nsaid. continue duloxetine Cervical disc ds - MRI - C5-6 left foraminal moderate stenosis. -discussed with spine surgery - start IV dexamethasone. home on po steroids and outpatient f/u with pain mx. Accelerated HTN - sec to pain. possible ZAIRA. BP better with IV meds. -contine home losartan. Add hctz. one dose amlodipine dose 10mgs today. Ambulation Subjective Ms. Muñoz reports her left arm feels better this morning and is still feeling stiff and numb, her left jaw and neck are still painful but better than yesterday. She reports having a headache overnight which has continued this morning. She is currently being worked up for hypertension by her primary care provider and has a follow up appointment on Tuesday. 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
[2023-08-11] MEDS ORDERED: KETOROLAC TROMETHAMINE 15 MG/ML VIAL IV ONE (19:48)
[2023-08-11] MEDS: MONTELUKAST SODIUM 10 MG TABLET PO SCH (20:02)
[2023-08-11 21:26] LABS: Appearance Urine Cloudy (Clear); Bacteria Urine Automated Negative (Negative); Bilirubin Urine Negative (Negative); Blood Urine Negative (Negative); Color Urine Yellow; Epithelial Cell Urine Auto >30 /lpf (0-5); Glucose Urine UA Negative (Negative); Ketones Urine Negative (Negative); Leukocyte Esterase Urine Negative (Negative); Nitrite Urine Negative (Negative); Protein Urine Negative (Negative); RBC Urine Automated 0-4 /hpf (0-4); Specific Gravity Urine 1.017 (1.000-1.030); Urobilinogen Urine Negative (Negative)
[2023-08-12 06:44] LABS: Basophils # (auto) 0.02 K/uL (0.00-0.20); Basophils % (auto) 0.4 %; Eosinophils # (auto) 0.01 K/uL (0.00-0.50); Eosinophils % (auto) 0.2 %; Hematocrit (blood only) 38.5 % (37.0-47.0); Hemoglobin 13.1 g/dl (12.0-16.0); Immature Granulocytes # (auto) 0.01 K/uL (0.01-0.20); Immature Granulocytes % (auto) 0.2 %; Lymphocytes # (auto) 1.13 K/uL (1.20-3.40); Lymphocytes % (auto) 21.4 %; Mean Corpuscular Hemoglobin 33.1 pg (25.0-34.0); Mean Corpuscular Volume 97.2 fL (80.0-100.0); Mean Platelet Volume 8.4 fL (9.4-12.4); Monocytes # (auto) 0.45 K/uL (0.11-0.59); Monocytes % (auto) 8.5 %; Neutrophils # (auto) 3.65 K/uL (1.40-6.50); Neutrophils % (auto) 69.3 %; Platelet Count 455 K/uL (130-400); RDW Coefficient of Variation 11.9 % (11.5-14.5); Red Blood Count 3.96 M/uL (4.20-5.40); White Blood Count 5.27 K/ul (4.8-10.8)
--- NOTE | 2023-08-12 07:15 | Discharge Summary ---
Date of Service August 12, 2023 Admission HPI Per Admitting Provider Pt is a 38 yo female with a past medical history of asthma, anxiety and depression, and thrombocytosis who presents to the hospital on 08/10/23 for L jaw pain radiating to neck and arm with associated numbness and with intermittent chest pain. Pt states that yesterday morning when she woke up she had L jaw pain like she had just been punched in the jaw. She states she also had neck pain and tightness that extended down to her left arm. She states she has never had anything like this before. She states that she was recently diagnosed with high blood pressure and started on losartan about 3 weeks ago. She states that over [place] she had been traveling for the holidays and was very stressed and noticed that she had gotten a horrible headache then and when she checked her blood pressure it was 190s systolic. She states that the jaw pain was associated with the left side of the face, neck, and arm feeling "off" and sort of numb but not tingly. She has been having more headaches recently, which use to be more R sided but have been whole head. She states that the sensation and pain remained the same all day yesterday and then last night she woke up in the middle of the night three times with sharp chest pain in the middle of her chest associated with palpitations and when she was still having symptoms of pain/numbness today she decided to get evaluated. In addition, she notes having chest pain under the breast that seems to come and go. She states she gets these "nodules" under the breast on the L side that are extremely tender to palpation but that the nodules seem to migrate and sometimes she has gotten them on the arms or neck. She states this has been an issue for many months now and she had multiple scans that had all come back normal so she was told it was a pulled muscle of some sort. Also, she states that the last few weeks she has been getting intermittent episodes of chest pain with heart fluttering that seem to last about a minute. She states she sometimes gets several a day and they seem to be unrelated to any particular activity, can happen at rest. She had a 48 hour heart monitor on Jul 26 but did not ship the device back until aug 03 so has not heard the results yet. No family hx of AR or arrhythmias. States her mom 9 years ago since she had a mitral valve issue and endocarditis that caused a massive stroke. No hx PE or DVT. No recent illnesses. States she always has diffuse joint pains, unchanged. 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 Principal Diagnosis C5-C6 Marrow edema Radiculopathy Discharge Exam Constitutional WD/WN, vitals as above Respiratory normal respiratory effort, lungs clear to auscultation Cardiovascular RRR, no murmur, no edema Gastrointestinal (Abdomen) normal bowel sounds, soft, nontender, no hepatosplenomegaly Musculoskeletal no cyanosis or clubbing, extremities motor strength 5/5 Discharge Data Allergies Allergy/AdvReac Type Severity Reaction Status Date / Time No Known Allergies Allergy Unverified 08/10/23 14:04 Consultations 08/10/23 16:46 ED Decision to Admit Stat Ordered Studies Microbiology 08/11/23 20:55 Urine,Clean Catch Urine Culture - Pending Labs 08/10/23 08/10/23 08/11/23 10:30 15:15 05:49 WBC 5.14 4.01 L RBC 4.36 3.93 L Hgb 14.1 12.9 Hct 42.5 38.5 MCV 97.5 98.0 MCH 32.3 32.8 MCHC 33.2 33.5 RDW Std Deviation 43.6 44.0 RDW Coeff of Javon 12.0 12.1 Plt Count 471 H 439 H MPV 8.3 L 8.4 L Immature Gran % (Auto) 0.2 0.2 Neut % (Auto) 71.0 34.5 Lymph % (Auto) 22.4 53.4 [place] % (Auto) 5.4 9.0 Eos % (Auto) 0.6 2.2 Baso % (Auto) 0.4 0.7 Neut # (Auto) 3.65 1.38 L Lymph # (Auto) 1.15 L 2.14 [place] # (Auto) 0.28 0.36 Eos # (Auto) 0.03 0.09 Baso # (Auto) 0.02 0.03 Immature Gran # (Auto) 0.01 0.01 RBC Morphology Unremarkable ESR 20 PT 11.4 INR 1.0 Sodium 137 137 Potassium 3.7 4.3 Chloride 105 106 Carbon Dioxide 24 25 Anion Gap 8 6 BUN 12 11 Creatinine 0.75 0.70 Est Cr Clr Drug Dosing 112.3 118.7 Est GFR ( Amer) 115.6 125.6 Est GFR (Non-Af Amer) 99.7 108.4 BUN/Creatinine Ratio 16.0 15.7 Glucose 110 H 101 H Calcium 9.2 9.1 Magnesium 2.0 Total Bilirubin 0.6 0.8 AST 17 13 ALT 15 11 Alkaline Phosphatase 61 51 Troponin I High Sens < 2.3 < 2.3 C-Reactive Protein < 0.50 Total Protein 8.3 6.8 Albumin 4.7 3.7 Globulin 3.6 3.1 Albumin/Globulin Ratio 1.3 1.2 TSH 1.424 HCG, Qual Negative Urine Color Urine Appearance Urine pH Ur Specific [place] Urine Protein Urine Glucose (UA) Urine Ketones Urine Blood Urine Nitrite Urine Bilirubin Urine Urobilinogen Ur Leukocyte Esterase Urine WBC (Auto) Urine RBC (Auto) U Hyaline Cast (Auto) U Epithel Cells (Auto) Urine Bacteria (Auto) Lyme Disease IgG Ab Negative Lyme Disease IgM Ab Negative 08/11/23 08/12/23 20:55 05:43 WBC 5.27 RBC 3.96 L Hgb 13.1 Hct 38.5 MCV 97.2 MCH 33.1 MCHC 34.0 RDW Std Deviation 43.0 RDW Coeff of Javon 11.9 Plt Count 455 H MPV 8.4 L Immature Gran % (Auto) 0.2 Neut % (Auto) 69.3 Lymph % (Auto) 21.4 [place] % (Auto) 8.5 Eos % (Auto) 0.2 Baso % (Auto) 0.4 Neut # (Auto) 3.65 Lymph # (Auto) 1.13 L [place] # (Auto) 0.45 Eos # (Auto) 0.01 Baso # (Auto) 0.02 Immature Gran # (Auto) 0.01 RBC Morphology ESR PT INR Sodium Potassium Chloride Carbon Dioxide Anion Gap BUN Creatinine Est Cr Clr Drug Dosing Est GFR ( Amer) Est GFR (Non-Af Amer) BUN/Creatinine Ratio Glucose Calcium Magnesium Total Bilirubin AST ALT Alkaline Phosphatase Troponin I High Sens C-Reactive Protein Total Protein Albumin Globulin Albumin/Globulin Ratio TSH HCG, Qual Urine Color Yellow Urine Appearance Cloudy A Urine pH 6.0 Ur Specific [place] 1.017 Urine Protein Negative Urine Glucose (UA) Negative Urine Ketones Negative Urine Blood Negative Urine Nitrite Negative Urine Bilirubin Negative Urine Urobilinogen Negative Ur Leukocyte Esterase Negative Urine WBC (Auto) 10-30 H Urine RBC (Auto) 0-4 U Hyaline Cast (Auto) 1-5 U Epithel Cells (Auto) >30 H Urine Bacteria (Auto) Negative Lyme Disease IgG Ab Lyme Disease IgM Ab Chest X-Ray 08/10/23 09:59 SINGLE VIEW CHEST CLINICAL HISTORY: Atypical chest pain. FINDINGS: An AP, portable, upright chest radiograph is compared to study dated 07/18/2023. The cardiomediastinal silhouette is unremarkable. The lungs and pleural spaces are clear. No pneumothorax is seen. The bony thorax is grossly intact. IMPRESSION: No active disease in the chest. ACT 112: Negative or not required by law. Electronically signed by: Maik Escobar M.D. 08/10/2023 10:[address] 08/10/23 10:12 CT OF THE HEAD WITHOUT CONTRAST CLINICAL HISTORY: dizziness; L side numbness COMPARISON STUDY: No previous studies for comparison. TECHNIQUE: Helical axial images of the head were obtained without IV contrast. Automated exposure control was utilized for the study. A dose lowering technique was utilized adhering to the principles of ALARA. FINDINGS: No acute intracranial hemorrhage, midline shift or mass effect is present. The ventricular system is unremarkable. The basal cisterns are patent. No extra-axial collections are present. There are no findings to suggest acute dural sinus thrombosis or acute territorial infarct. No significant calvarial abnormalities are present. Mucous retention cyst versus polyp within the left maxillary sinus is incidentally noted. IMPRESSION: No acute intracranial findings. ACT 112: Negative or not required by law. Electronically signed by: Dashawn Georges M.D. 08/10/2023 12:49 PM Head CTA 08/10/23 10:12 CTA ANGIOGRAPHY OF THE HEAD CLINICAL HISTORY: dizziness; L side numbness COMPARISON STUDY: No previous studies for comparison. TECHNIQUE: Helical axial images of the head were obtained following uneventful intravenous administration of 115 cc of Optiray. Sagittal and coronal reconstructions were viewed as well as maximal intensity projections on an independent 3-D workstation. Automated exposure control was utilized for the study. A dose lowering technique was utilized adhering to the principles of ALARA. FINDINGS: No acute intracranial hemorrhage is identified. Ventricular system is unremarkable. Basal cisterns are patent. There are no extra axial collections. Suspected mucous retention cyst within the left maxillary sinus is incidentally noted. The bilateral M1, M2, A1 and A2 segments are patent. No central vessel occlusion is present. Left vertebral artery is dominant. Posterior circulation is intact. There is no intracranial aneurysm or dissection. IMPRESSION: No large vessel occlusion. No intracranial aneurysm. ACT 112: Negative or not required by law. Electronically signed by: Dashawn Georges M.D. 08/10/2023 12:53 PM Neck CTA 08/10/23 10:12 CT ANGIOGRAM OF THE NECK CLINICAL HISTORY: Strokelike symptoms. Dizziness. Left-sided numbness. COMPARISON STUDY: No priors. TECHNIQUE: Following the IV administration of 115 of Optiray 320, CT angiogram of the neck was performed from the aortic arch to the skull base. Images are reviewed in the axial, sagittal, and coronal planes. 3-D MIPS images are created and assessed. IV contrast was administered without complication. All measurements were calculated based on NASCET criteria. A dose lowering technique was utilized adhering to the principles of ALARA. CT DOSE: 1020.12 mGy.cm FINDINGS: Thoracic aorta: Visualized portions of the thoracic aorta are normal in caliber. The aortic arch demonstrates standard 3-vessel anatomy. Right carotid arterial system: The right common carotid artery is widely patent, as are the right internal and external carotid arteries. Left carotid arterial system: The left common carotid artery is widely patent, as are the left internal and external carotid arteries. Vertebral arteries: Widely patent bilaterally noting left-sided dominance. Subclavian arteries: Widely patent bilaterally. Intracranial vasculature: The visualized intracranial vessels at the skull base are patent. Jugular veins: Widely patent bilaterally. Brain parenchyma: The visualized brain parenchyma the skull base is within normal limits. Lung apices: Partially visualized upper lobe lung parenchyma appears clear. Soft tissues: The visualized pharyngeal soft tissues are normal in appearance noting angiographic phase technique. The oropharyngeal airway appears widely patent. The salivary and thyroid glands are normal in appearance. No cervical lymphadenopathy is seen. Skeletal structures: The visualized calvarium at the skull base appears intact. The imaged cervical spine is within normal limits. Sinuses and mastoids: The visualized paranasal sinuses are clear. The mastoid air cells are well pneumatized. Cerumen is noted in the right external auditory canal. IMPRESSION: Unremarkable CT angiogram of the neck. ACT 112: Negative or not required by law. Electronically signed by: Maik Escobar M.D. 08/10/2023 12:42 PM Brain MRI 08/10/23 20:03 Exam(s): MRI HEAD W/WO Contrast IV Amt: 9.2cc gadavist EXAM: MR Head Without and With Intravenous Contrast CLINICAL HISTORY: Reason for exam: L jaw pain, L face numbness. TECHNIQUE: Magnetic resonance images of the head/brain without and with intravenous contrast in multiple planes. Mild motion artifact. CONTRAST: Patient received 9.2cc gadavist of IV contrast COMPARISON: None. FINDINGS: Brain: No mass-effect or acute infarct. No acute or chronic hemorrhage. No abnormal enhancement or abnormal signal in the brain parenchyma. Ventricles: No hydrocephalus or midline shift. Bones/joints: No calvarial lesions. Soft tissues: No scalp hematoma. Sinuses: Clear. Mastoid air cells: No mastoid effusion. IMPRESSION: 1. No abnormal enhancement, acute infarct, bleed, or acute intracranial abnormality. Electronically signed by: Angela Wesley M.D. 08/10/23 23:56 PM Cervical Spine MRI 08/10/23 20:41 Exam(s): MRI C SPINE EXAM: MR Cervical Spine Without Intravenous Contrast CLINICAL HISTORY: Reason for exam: left arm shoulder numbness ?radiculopathy. TECHNIQUE: Magnetic resonance images of the cervical spine without intravenous contrast in multiple planes. COMPARISON: CTA neck done earlier. FINDINGS: Vertebrae: Mild discogenic marrow edema on the left at C5-6 indicates a more acute component to the degenerative change at this level. No other marrow edema or compression deformity. No discitis or osteomyelitis. Spinal cord: Normal signal. Soft tissues: No epidural abscess or hematoma. No interspinous ligamentous edema or prevertebral edema. DISCS/SPINAL CANAL/NEURAL FORAMINA: C2-C3: Unremarkable. C3-C4: Mild degenerative disc disease. C4-C5: Mild degenerative disc disease. C5-C6: Moderate circumferential disc and osteophyte, moderate left uncovertebral joint hypertrophy, with moderate left foraminal stenosis. C6-C7: Mild degenerative disc disease. C7-T1: Unremarkable. OTHER: No isolated disc herniation or central spinal stenosis. IMPRESSION: 1. Moderate degenerative disc disease at C5-6 with marrow edema, indicating a more acute component to the degenerative change at this level. Moderate left foraminal stenosis. 2. No disc herniation, abnormal cord signal or central spinal stenosis. Electronically signed by: Angela Wesley M.D. 08/11/23 00:15 AM 08/10/23 10:12 CT head/brain wo con Stat CTA head w con [CT angio head w con] Stat CTA neck with con [CT angio neck with con] Stat 08/10/23 20:03 MRI Brain [MR brain wo/w con] Urgent 08/10/23 20:41 MRI Cervical [MR cervical spine wo con] Routine Hospital Course (1) Chest pain: (2) Left-sided chest wall pain: (3) Depression: (4) Anxiety: (5) Asthma: (6) Pain in lower jaw: (7) Hypertension: Plan Pt is a 38 yo female with a past medical history of asthma, anxiety and depression, and thrombocytosis who presents to the hospital on 08/10/23 for L jaw pain radiating to neck and arm with associated numbness and with intermittent chest pain. Chest pain/Left jaw pain - pt notes intermittent episodes of 1 min sharp mid chest chest pain with heart flutter sensation - EKG wnl, trop negative x2, vitals stable - Pain could be from radiculopathy from thoracic spine causing muscle spasm Moderate degenerative disc disease C5-6 / Left arm radiculopathy - with numbness, radiating down ipsilateral neck and arm, onset on the morning of 08/10 - head/neck CTA wnl, head CT normal, MRI of brain normal, -MRI of of cervical spine showed moderate degenerative disc disease at C5-6 with marrow edema, indicating a more acute component to the degenerative change at this level. Moderate left foraminal stenosis. -Dr Howard recommended IV steroids, start 4mg Decadron, no surgical management now, outpatient follow up with him as well with pain management clinic. Case management to schedule appointment for Orthopedic and pain management clinic. -Patient sent home with MedPlastsrol ABDULLAHI LVH - stress echo results showed mild LVH - BP control as below. Accelerated HTN - Losartan was increased to 50 mg daily - Stress test findings with markedly HTN blood pressure(systolic in 240s) -Clonidine 0.1 mg was added as needed for BP>180 systolic - continue hypertension workup outpatient with Dr. Levy to achieve blood pressure control Left chest wall pain - pt notes migrating and intermittent tender nodule, gets one recurrent on L chest under breast but can get them anywhere - MR chest done in January - Pain could be from radiculopathy from thoracic spine causing muscle spasm - continue home duloxetine - Return to pain management clinic Depression - continue home duloxetine Anxiety - continue home hydroxyzine prn Asthma - continue home albuterol - continue home montelukast - continue home fluticasone-salmeterol Total Time Total Time Spent Total Time Spent (In Minutes): see attending attestation Discharge Plan Discharge Items Patient Disposition: Home - Self-Care Reason For Visit: CHEST PAIN, JAW PAIN Discharge Diagnosis: Radiculopathy upper left arm Chest pain Activity: Resume your previous activity Non-emergency contact: Primary Care Provider Call non-emergency contact if: you have any medication questions, your symptoms worsen, your pain is unusual for you and you have a fever Follow-up/Referrals: Chanel Stock DO [Primary Care Provider] - 08/19/23 9:40 am (THIS APPOINTMENT WILL BE WITH DR MORALES) Diet: Regular Addtl Attending Provider Instructions: During you admission we rule out that your chest pain was heart related. No finding of acute myocardiac infarction was found. We run a couple of test due to your symptoms. Head and Neck CT was negative for any pathology. The Cervical spine MRI shows moderate degenerative disc disease at C5-6 with marrow edema. This happens when fluids builds up in the soft tissue inside your bones (bone marrow). This explained your current symptoms of radiculopathy of the left arm. We consult Orthopedic they recommended steroids as an initial treatment and follow up with them as well with pain management clinic. We worked with our case management to get you those appointments. We sent to your pharmacy MedPlastsrol abdullahi, take them as indicated. For you hypertension. We are going to increase your Losartan to 50mg daily. And additionally we are going to sent a new medication called Clonidine 0.1 mg. you will take one tab only as needed when you Blood pressure go >180/110. Your Lidocaine patch should be remove after 12 hours Follow-up appointments: Make a follow-up appointment with your PCP within the next week. It is very important that you follow up with them shortly after discharge from the hospital. Keep all your follow-up appointments as already scheduled. If you cannot make an appointment, notify your provider. Medications: Your medication list has been reviewed and reconciled upon discharge to ensure accuracy and continuity of care. An updated list of all your medications is included with your hospital discharge paperwork. Please review this list closely, and make note of any changes. Take your medications as instructed; do not skip a dose of your medicines. Make sure all of your doctors know every medicine you are taking (including [id number] medicines, vitamins, and supplements). Call your primary care provider before taking any new medicines (including [id number] medicines, vitamins, and supplements), because some of these may interact with your current medications, or may make your symptoms worse. Tell your primary care provider if you cannot afford your medications. CONTACT YOUR PRIMARY CARE PROVIDER if you experience any of the following: Difficulty following your treatment plan, or difficulty taking medications CALL 911 OR GO TO THE EMERGENCY DEPARTMENT if you experience any of the following: Sudden, severe abdominal pain or nausea/vomiting Severe chest pain, or chest pain that radiates (moves) to your jaw or arm Sudden, severe shortness of breath or difficulty breathing Thank you for allowing us to participate in your care. Pending Studies at Discharge: No Stand-Alone Forms: My [facility] [employer], Work/School Release, Smoking Cessation Medications and DC Order Prescriptions: New clonidine HCl 0.1 mg tablet 0.1 mg PO DAILY PRN (Reason: hypertensive emergency) Qty: 14 0RF methylprednisolone [Methylpred DP] 4 mg tablets,dose pack 4 mg PO DAILY Qty: 21 0RF Rx Instructions: 6 tablets on day 1, 5 tablets on day 2, 4 tablets on day 3, 3 tablets on day 4, 2 tablets on day 5, 1 tablet on day 6. tramadol 50 mg tablet 50 mg PO TID PRN (Reason: pain) Qty: 20 0RF Continued montelukast 10 mg Tablet 10 mg PO PM Qty: 0 metronidazole [MetroCream] 0.75 % Cream 1 applic TOPICAL DAILY PRN (Reason: Rash) albuterol sulfate [ProAir HFA] 90 mcg/actuation Hfa Aerosol Inhaler 1 puff INHALATION QID PRN (Reason: SOB) Dulera 100-5 mcg/actuation Hfa Aerosol Inhaler 2 puff INHALATION BID PRN (Reason: SOB) multivitamin Tablet 1 tab PO QAM acetaminophen 500 mg Tablet 1,500 mg PO Q6H PRN (Reason: Pain (Scale Score 1-3)) ferrous sulfate 325 mg (65 mg iron) Tablet 325 mg PO DAILY hydroxyzine HCl 25 mg tablet 25 mg PO QID PRN (Reason: Anxiety) duloxetine 30 mg capsule,delayed release(DR/EC) 30 mg PO QAM fluticasone propion-salmeterol 232-14 mcg/actuation aerosol powdr breath activated 1 inh INHALATION BID diclofenac sodium 75 mg tablet,delayed release (DR/EC) 75 mg PO BID PRN (Reason: Pain) Changed losartan 25 mg tablet 50 mg PO QAM 30 Days Qty: 60 0RF Discharge Orders: Discharge Order (Routine); Ordered 08/12/23 Ordered By: Sandrita Plascencia Admission Data Admit Date/Time: 08/10/23 18:52 Attending Provider: Lenora Lopez Admit Provider: Nikki Morales Primary Care Provider: Chanel Stock Other Providers: Nate Gusman Other Interventions: Discharge Summary Assessment (RN) Last Done: 08/12/23 14:29 Supervising Physician Co-Signing Physician Notes Attending Physician Supervision Note: I independently interviewed and examined the patient and verified the wright his tory and physical, reviewed labs and image studies and agree with findings and care plan noted above. patient called late in the evening - her pain not controlled with nsaid. bp at home running 150-180s systolic. advised to take clonidine with BP rise. tramadol rx sent to pharmacy.
[2023-08-12 07:37] LABS: Albumin Level 3.9 gm/dl (3.4-5.0); Bilirubin,Total 0.5 mg/dl (0.2-1.0); Calcium 9.2 mg/dl (8.6-10.3); Potassium 4.5 mmol/L (3.5-5.1)
[2023-08-12 07:43] LABS: Albumin Globulin Ratio 1.2 (0.9-2); BUN Creatinine Ratio 22.7 (10-20); Creatinine Clr Calc Pharmacy 110.8 ml/min; Est GFR (African American) 115.6 ml/min; Est GFR (Non-African American) 99.7 ml/min; Globulin 3.2 gm/dl (2.5-4.0); Total Protein 7.1 gm/dl (6.0-8.3)
[2023-08-12] MEDS ORDERED: hydroCHLOROthiazide 25 MG TAB PO SCH (09:00)
[2023-08-12] MEDS: ONDANSETRON INJ 2 MG/ML 2 ML VIAL IV PRN (09:19)
[2023-08-12] MEDS ORDERED: DEXAMETHASONE SOD INJ 4 MG/ML VIAL IV STA (09:32)
[2023-08-12] MEDS ORDERED: dexAMETHasone 4 MG in SYRINGE 0 ML IV ONE (09:45)
[2023-08-12] MEDS: FERROUS SULFATE 325 MG TAB PO SCH (10:44)
[2023-08-12] MEDS: DULoxetine HCL 30 MG CAP PO SCH (10:44)
[2023-08-12] MEDS: FLUTICASONE/VILANTEROL 100/25MCG 14 PUFFS/INHALER INH SCH (10:44)
[2023-08-12] MEDS: LOSARTAN POTASSIUM 25 MG TAB PO SCH (10:45)
[2023-08-12] MEDS ORDERED: KETOROLAC TROMETHAMINE 10 MG TABLET PO STA (11:04)
[2023-08-12] MEDS: ACETAMINOPHEN 325 MG TAB PO PRN (12:30)
[2023-08-12] MEDS ORDERED: LIDOCAINE 5% 1 PATCH TD STA (13:32)
== END 2023-08-12 15:04 | disposition home or self-care (01) ==
LOC: ED 09:42 → EDINP 09:42 → SUATTDRO 18:52 → 2N 23:29

== ENCOUNTER 2023-08-29 17:10 | Inpatient (IN) ==
--- NOTE | 2023-08-29 17:16 | Emergency Department Note ---
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 appearance. No cervical lymphadenopathy is seen. Skeletal structures: The calvarium appears intact. The cervical spine is within normal limits. Orbits: The bony orbits are intact. Orbital contents are normal as visualized. Sinuses and mastoids: There is a 1.5 cm retention cyst in the left maxillary antrum. The paranasal sinuses are otherwise clear. The mastoid air cells are well pneumatized. IMPRESSION: 1. There is no hemorrhage, mass effect, or evidence of acute territorial ischemia by CT criteria. 2. Unremarkable CT angiogram of the brain. 3. Unremarkable CT angiogram of the neck. ACT 112: Negative or not required by law. Electronically signed by: Maik Escobar M.D. 08/29/2023 5:44 PM Neck CTA 08/29/23 17:[address] OF THE BRAIN; CT ANGIOGRAM OF THE BRAIN; CT ANGIOGRAM OF THE NECK CLINICAL HISTORY: Neurological deficit. Stroke like symptoms. COMPARISON STUDY: CT angiogram of the head and neck dated 08/10/2023. TECHNIQUE: Unenhanced axial CT scan of the brain is performed. Subsequently, following the IV administration of 118 of Optiray 320, CT angiogram of the head and neck was performed from the aortic arch to the vertex. Images are reviewed in the axial, sagittal, and coronal planes. 3-D MIPS images are created and assessed. IV contrast was administered without complication. All measurements were calculated based on NASCET criteria. A dose lowering technique was utilized adhering to the principles of ALARA. CT DOSE: 1267.84 mGy.cm FINDINGS: Brain parenchyma: The brain parenchyma is normal in appearance. There is no hemorrhage, mass effect, or evidence of acute territorial ischemia by CT criteria. There is no evidence of enhancing mass lesion on the angiogram phase images. The ventricles, sulci, and cisterns are normal in configuration. [place]- white matter differentiation is preserved. No extra-axial fluid collection is seen. Thoracic aorta: Visualized portions of the thoracic aorta are normal in caliber. The aortic arch demonstrates standard 3-vessel anatomy. Right carotid arterial system: The right common carotid artery is widely patent, as are the right internal and external carotid arteries. Left carotid arterial system: The left common carotid artery is widely patent, as are the left internal and external carotid arteries. Vertebral arteries: The vertebral arteries are widely patent bilaterally noting left-sided dominance. Subclavian arteries: Widely patent bilaterally. Intracranial vasculature: The internal carotid arteries are patent at the skull base, as are the anterior and middle cerebral arteries bilaterally. The vertebrobasilar system and posterior cerebral arteries are widely patent. The left vertebral artery is dominant. There is no aneurysm, high-grade stenosis, or focal vessel cut off seen throughout the intracranial circulation. Jugular veins: Patent bilaterally. Dural sinuses: Patent. Lung apices: Partially visualized upper lobe lung parenchyma appears clear. Soft tissues: The visualized pharyngeal soft tissues are normal in appearance noting angiographic phase technique. The oropharyngeal airway appears widely patent. The thyroid gland is mildly heterogeneous. The salivary glands are normal in appearance. No cervical lymphadenopathy is seen. Skeletal structures: The calvarium appears intact. The cervical spine is within normal limits. Orbits: The bony orbits are intact. Orbital contents are normal as visualized. Sinuses and mastoids: There is a 1.5 cm retention cyst in the left maxillary antrum. The paranasal sinuses are otherwise clear. The mastoid air cells are well pneumatized. IMPRESSION: 1. There is no hemorrhage, mass effect, or evidence of acute territorial ischemia by CT criteria. 2. Unremarkable CT angiogram of the brain. 3. Unremarkable CT angiogram of the neck. ACT 112: Negative or not required by law. Electronically signed by: Maik Escobar M.D. 08/29/2023 5:44 PM Discharge Plan Visit Data Chief Complaint: Stroke Alert Stated Complaint: NOT WELL, PAIN IN HEAD,NECK,BACK ED Provider: José Ralph Discharge Problem: Syncope and collapse Patient Disposition: Admitted As Inpatient Discharge Instructions Interventions: ED Discharge Assessment Last Done: 08/29/23 21:37 Forms Stand Alone Forms: [facility] [employer] Prescriptions Prescriptions: No Action montelukast 10 mg Tablet 10 mg PO PM Qty: 0 metronidazole [MetroCream] 0.75 % Cream 1 applic TOPICAL DAILY PRN (Reason: Rash) albuterol sulfate [ProAir HFA] 90 mcg/actuation Hfa Aerosol Inhaler 1 puff INHALATION QID PRN (Reason: SOB) Dulera 100-5 mcg/actuation Hfa Aerosol Inhaler 2 puff INHALATION BID PRN (Reason: SOB) multivitamin Tablet 1 tab PO QAM ferrous sulfate 325 mg (65 mg iron) Tablet 325 mg PO Q OTHER DAY hydroxyzine HCl 25 mg tablet 25 mg PO QID PRN (Reason: Anxiety) duloxetine 30 mg capsule,delayed release(DR/EC) 30 mg PO QAM fluticasone propion-salmeterol 232-14 mcg/actuation aerosol powdr breath activated 1 inh INHALATION BID diclofenac sodium 75 mg tablet,delayed release (DR/EC) 75 mg PO BID PRN (Reason: Pain) clonidine HCl 0.1 mg tablet 0.1 mg PO DAILY PRN (Reason: hypertensive emergency) Qty: 14 0RF tramadol 50 mg tablet 50 mg PO TID PRN (Reason: pain) Qty: 20 0RF losartan 50 mg tablet 50 mg PO DAILY methocarbamol 750 mg tablet 750 mg PO TID PRN (Reason: .muscle spasms) Referrals Referrals: Chanel Stock DO [Primary Care Provider] -
[2023-08-29] MEDS ORDERED: SODIUM CHLORIDE 0.9% 1,000 ML IV ONE (17:18)
[2023-08-29 17:24] LABS: Basophils # (auto) 0.01 K/uL (0.00-0.20); Basophils % (auto) 0.2 %; Eosinophils # (auto) 0.02 K/uL (0.00-0.50); Eosinophils % (auto) 0.4 %; Hematocrit (blood only) 36.8 % (37.0-47.0); Hemoglobin 12.8 g/dl (12.0-16.0); Immature Granulocytes # (auto) 0.01 K/uL (0.01-0.20); Immature Granulocytes % (auto) 0.2 %; Lymphocytes # (auto) 1.29 K/uL (1.20-3.40); Lymphocytes % (auto) 23.4 %; Mean Corpuscular Hemoglobin 33.2 pg (25.0-34.0); Mean Corpuscular Hgb Conc 34.8 g/dL (32.0-36.0); Mean Corpuscular Volume 95.6 fL (80.0-100.0); Mean Platelet Volume 8.1 fL (9.4-12.4); Monocytes # (auto) 0.35 K/uL (0.11-0.59); Monocytes % (auto) 6.4 %; Neutrophils # (auto) 3.83 K/uL (1.40-6.50); Neutrophils % (auto) 69.4 %; Platelet Count 453 K/uL (130-400); RDW Coefficient of Variation 12.3 % (11.5-14.5); RDW Standard Deviation 43.1 fL (36.4-46.3); Red Blood Count 3.85 M/uL (4.20-5.40); White Blood Count 5.51 K/ul (4.8-10.8)
[2023-08-29 17:28] LABS: iSTAT Creatinine 0.7 mg/dl (0.6-1.3); iSTAT Hemoglobin 13.3 g/dl (12.0-16.0); iSTAT Ionized Calcium 1.23 mmol/l (1.12-1.32); iSTAT Potassium 3.5 mmol/L (3.3-5.0)
[2023-08-29] MEDS ORDERED: OPTIRAY 320 125ml IV ONE (17:29)
[2023-08-29 17:45] LABS: Albumin Globulin Ratio 1.2 (0.9-2); Albumin Level 4.1 gm/dl (3.4-5.0); BUN Creatinine Ratio 11.1 (10-20); Bilirubin,Total 0.5 mg/dl (0.2-1.0); Calcium 9.3 mg/dl (8.6-10.3); Creatinine Clr Calc Pharmacy 115.9 ml/min; Est GFR (African American) 121.4 ml/min; Est GFR (Non-African American) 104.8 ml/min; Globulin 3.4 gm/dl (2.5-4.0); Magnesium 1.8 mg/dl (1.7-2.4); Potassium 3.5 mmol/L (3.5-5.1); Total Protein 7.5 gm/dl (6.0-8.3)
--- NOTE | 2023-08-29 17:46 | CT Scan Report ---
UNENHANCED CT OF THE BRAIN; CT ANGIOGRAM OF THE BRAIN; CT ANGIOGRAM OF THE NECK CLINICAL HISTORY: Neurological deficit. Stroke like symptoms. COMPARISON STUDY: CT angiogram of the head and neck dated 08/10/2023. TECHNIQUE: Unenhanced axial CT scan of the brain is performed. Subsequently, following the IV adminis tration of 118 of Optiray 320, CT angiogram of the head and neck was performed from the aortic arch t o the vertex. Images are reviewed in the axial, sagittal, and coronal planes. 3-D MIPS images are cre ated and assessed. IV contrast was administered without complication. All measurements were calculate d based on NASCET criteria. A dose lowering technique was utilized adhering to the principles of ALA RA. CT DOSE: 1267.84 mGy.cm FINDINGS: Brain parenchyma: The brain parenchyma is normal in appearance. There is no hemorrhage, mass effect, or evidence of acute territorial ischemia by CT criteria. There is no evidence of enhancing mass lesi on on the angiogram phase images. The ventricles, sulci, and cisterns are normal in configuration. Gr ay-white matter differentiation is preserved. No extra-axial fluid collection is seen. Thoracic aorta: Visualized portions of the thoracic aorta are normal in caliber. The aortic arch demo nstrates standard 3-vessel anatomy. Right carotid arterial system: The right common carotid artery is widely patent, as are the right int ernal and external carotid arteries. Left carotid arterial system: The left common carotid artery is widely patent, as are the left [employer] al and external carotid arteries. Vertebral arteries: The vertebral arteries are widely patent bilaterally noting left-sided dominance. Subclavian arteries: Widely patent bilaterally. Intracranial vasculature: The internal carotid arteries are patent at the skull base, as are the ante rior and middle cerebral arteries bilaterally. The vertebrobasilar system and posterior cerebral brian sammy are widely patent. The left vertebral artery is dominant. There is no aneurysm, high-grade steno sis, or focal vessel cut off seen throughout the intracranial circulation. Jugular veins: Patent bilaterally. Dural sinuses: Patent. Lung apices: Partially visualized upper lobe lung parenchyma appears clear. Soft tissues: The visualized pharyngeal soft tissues are normal in appearance noting angiographic pha se technique. The oropharyngeal airway appears widely patent. The thyroid gland is mildly heterogeneo us. The salivary glands are normal in appearance. No cervical lymphadenopathy is seen. Skeletal structures: The calvarium appears intact. The cervical spine is within normal limits. Orbits: The bony orbits are intact. Orbital contents are normal as visualized. Sinuses and mastoids: There is a 1.5 cm retention cyst in the left maxillary antrum. The paranasal si nuses are otherwise clear. The mastoid air cells are well pneumatized. IMPRESSION: 1. There is no hemorrhage, mass effect, or evidence of acute territorial ischemia by CT criteria. 2. Unremarkable CT angiogram of the brain. 3. Unremarkable CT angiogram of the neck. ACT 112: Negative or not required by law. Electronically signed by: Maik Escobar M.D. 08/29/2023 5:44 PM
[2023-08-29 17:52] LABS: Troponin I High Sensitivity 2.4 pg/ml (0-14)
[2023-08-29 17:58] LABS: INR 1.1 (0.9-1.1); Partial Thromboplastin Ratio 0.9; Partial Thromboplastin Time 24 Seconds (21-31); Prothrombin Time 11.6 Seconds (9.0-12.0)
[2023-08-29 20:04] LABS: Appearance Urine Clear (Clear); Bilirubin Urine Negative (Negative); Blood Urine Negative (Negative); Color Urine Yellow; Glucose Urine UA Negative (Negative); Ketones Urine 1+ (Negative); Leukocyte Esterase Urine Negative (Negative); Nitrite Urine Negative (Negative); Protein Urine Negative (Negative); Specific Gravity Urine > 1.045 (1.000-1.030); Urobilinogen Urine Negative (Negative)
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
[2023-08-29] MEDS ORDERED: POLYETHYLENE (MIRALAX) 17 GM PACK PO PRN (22:43)
[2023-08-29] MEDS ORDERED: cloNIDine HCL 0.1 MG TAB PO PRN (22:43)
[2023-08-29] MEDS ORDERED: hydrOXYzine HCl 25 MG TAB PO PRN (22:43)
[2023-08-29] MEDS ORDERED: DICLOFENAC SODIUM 75 MG TABCR PO PRN (22:43)
[2023-08-29] MEDS ORDERED: ALBUTEROL HFA 8 GM INHALER INH PRN (22:43)
[2023-08-29 23:06] LABS: Phosphorus 2.5 mg/dl (2.5-4.9)
[2023-08-29] MEDS: DOCUSATE SODIUM 100 MG CAP PO SCH (23:39)
[2023-08-29] MEDS: METHOCARBAMOL 750 MG TABLET PO PRN (23:39)
[2023-08-29] MEDS: DULoxetine HCL 30 MG CAP PO SCH (23:39)
[2023-08-29] MEDS: MONTELUKAST SODIUM 10 MG TABLET PO SCH (23:40)
[2023-08-29] MEDS: LOSARTAN POTASSIUM 50 MG TAB PO SCH (23:41)
[2023-08-29 23:44] LABS: Folate (Folic Acid),Ser orPlas 20.11 ng/ml (>5.38)
[2023-08-30 01:00] LABS: Pregnancy Test, Urine Negative (Negative)
[2023-08-30] MEDS: ONDANSETRON INJ 2 MG/ML 2 ML VIAL IV PRN ×3 (03:28→18:14)
[2023-08-30 06:38] LABS: Hematocrit (blood only) 32.6 % (37.0-47.0); Hemoglobin 11.2 g/dl (12.0-16.0); Mean Corpuscular Hemoglobin 33.1 pg (25.0-34.0); Mean Corpuscular Hgb Conc 34.4 g/dL (32.0-36.0); Mean Corpuscular Volume 96.4 fL (80.0-100.0); Mean Platelet Volume 8.3 fL (9.4-12.4); Platelet Count 389 K/uL (130-400); RDW Coefficient of Variation 12.2 % (11.5-14.5); RDW Standard Deviation 42.8 fL (36.4-46.3); Red Blood Count 3.38 M/uL (4.20-5.40); White Blood Count 3.66 K/ul (4.8-10.8)
[2023-08-30 07:01] LABS: BUN Creatinine Ratio 11.4 (10-20); Calcium 8.9 mg/dl (8.6-10.3); Creatinine Clr Calc Pharmacy 121.3 ml/min; Est GFR (African American) 125.6 ml/min; Est GFR (Non-African American) 108.4 ml/min; Potassium 3.6 mmol/L (3.5-5.1)
[2023-08-30 08:17] LABS: Estimated Average Glucose 117 mg/dl; Hemoglobin A1C 5.7 % (4.5-5.6)
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
[2023-08-30] MEDS: LOSARTAN POTASSIUM 50 MG TAB PO SCH (10:27)
[2023-08-30] MEDS: METHOCARBAMOL 750 MG TABLET PO PRN (10:28)
[2023-08-30] MEDS: DOCUSATE SODIUM 100 MG CAP PO SCH ×2 (10:28→21:25)
[2023-08-30] MEDS: FLUTICASONE/VILANTEROL 200/25MCG 14 PUFFS/INHALER INH SCH (10:28)
[2023-08-30] MEDS: DULoxetine HCL 30 MG CAP PO SCH (10:29)
[2023-08-30] MEDS: KETOROLAC TROMETHAMINE 15 MG/ML VIAL IV PRN ×2 (10:33→22:35)
[2023-08-30] MEDS: predniSONE 20 MG TAB PO SCH (11:37)
[2023-08-30] MEDS: MAGNESIUM OXIDE 400 MG TAB PO SCH ×2 (11:37→21:28)
--- NOTE | 2023-08-30 12:08 | Electrocardiogram Report ---
Test Reason : Blood Pressure : / mmHG Vent. Rate : 076 BPM Atrial Rate : 076 BPM P-R Int : 160 ms QRS Dur : 080 ms QT Int : 396 ms P-R-T Axes : 032 013 030 degrees QTc Int : 445 ms Normal sinus rhythm Poor R wave progression, consider anterior PA vs. lead placement vs. LVH Nonspecific T wave abnormality Abnormal ECG When compared with ECG of 29-AUG-2023 00:04, T wave inversion now evident in Anterior leads QT has shortened Confirmed by Maximino Gaspar ([id number]) on 08/30/2023 12:07:37 PM Referred By: REFERRED SELF Confirmed By:Maximino Gaspar
--- NOTE | 2023-08-30 14:48 | Hospitalist Progress Note ---
Date of Service August 30, 2023 Assessment & Plan (1) Stroke-like symptoms: Plan: 38yo female presenting with episodes of reduced consciousness, slurred speech and headache along with severe pain from the sacrum all the way up to her neck after feeling something pop in her rectal region during intercourse. She has had extensive brain imaging including CT head, CTA Head/Neck which were negative. She had a recent Brain MRI and C-spine MRI 2 weeks ago which were l argely unremarkable except for some marrow edema at C5-6. Prior workup includes normal lipid panel on 07/29/23, normal TSH. Patient also has some acute on chronic left thorax pain for which she has seen pain management in the last year Her neurologic exam is completely normal Appreciate neurology consultation-thinks related to migraine versus somatization from anxiety-recommends starting prednisone 60 mg once daily x 4 days, gabapentin 100 Mg p.o. 3 times daily, magnesium 400 Mg p.o. twice daily, and considering psychiatric consultation. Neurology does not think she needs any further workup for stroke and I agree with this. Her headaches also seem to of started in July when her blood pressures were noted to be elevated-blood pressure control as below Feel her lightheadedness and potentially brief loss of consciousness is vasovagal syncope secondary to pain in her back and neck-treat the pain and hopefully this will resolve No events on telemetry and she had a normal cardiac workup 2 weeks ago. (2) Hypertension: Plan: Continues with elevated blood pressure. Patient has been started on Losartan fairly recently as well as PRN Clonidine for when her BP is > 180mmHg. She reports taking the Clonidine 2-3 times since her recent discharge from the hospital. LVH is present on recent echo as well -Telemetry monitoring is unrevealing -Continue Losartan 50mg po daily and consider increasing to 100 mg daily-her renal function is normal and abdominal CT angiogram reveals normal renal arteries without stenoses -Clonidine PRN -Consider adding on amlodipine if blood pressures are persistently elevated (3) Asthma: Plan: Chronic. Overall well controlled -Continue Albuterol PRN -Continue Fluticasone/Vilanterol (4) Anxiety: Plan: Chronic. Consideration to anxiety playing a role in patient's current constellation of symptoms? -Continue Duloxetine 30mg po qAM -Continue Hydroxyzine PRN -Consider psychiatric consultation (5) Migraine syndrome: Plan: As noted above (6) Syncope and collapse: Plan: As noted above (7) Neck pain: Plan: As noted above Start Voltaren gel and heating pad Starting gabapentin and prednisone Check cervical spine MRI (8) Lower back pain: Plan: As above Check lumbar spine MRI although doubt anything will be on this Starting gabapentin (9) Left-sided chest wall pain: Plan: Acute on chronic Seen by pain management in the past and offered intercostal injections which she never rescheduled as she was nervous Plan DVT prophylaxis-add SCDs Disposition-continued stay for pain control and further workup of back and neck pain Admission and Anticipated Discharge Date Admission Date: August 29, 2023 Subjective Patient continues to complain of multiple symptoms all over her body. This includes an ongoing all of her headache and feels very sensitive in the back of her head. Pain in the left lower anterior rib cage which is chronic. She has new pain since 2 nights ago and the lower back all the way up her spine to her neck. She is also having pain in her bilateral ears ongoing for over a month. Yesterday she had a sensation like a bubble was traveling up her left lower extremity over across her pelvis into her right hip and up the right side of her body/thorax. She was having ongoing issues when she came in yesterday with going in and out of consciousness as per her fianc whom I spoke with on the phone in the room with the patient. Every time she feels the significant pain in her back, she does feel lightheaded like she is going to pass out. She is also having symptoms of the room spinning with turning her head to the left and right. When she has the episodes where she feels that she is going to pass out she does become sweaty and nauseated. She also questions if she has a CSF leak causing the edema in her neck which was seen on previous MRI last admission. She also questions if she has CSF leaking out of her right ear as she had fluid coming out in the last few weeks some time. She has not had any head trauma. She has not had any recent surgeries or procedures to her spine. Telemetry with normal sinus rhythm with rates in the 70s to 80s Physical Exam Constitutional: WD/WN, vitals as above Eyes: PERRL, conjunctivae normal, anicteric sclerae ENMT: external ear and nose normal, oropharynx normal Neck: trachea midline, no thyromegaly Respiratory: normal respiratory effort, lungs clear to auscultation Cardiovascular: RRR, no murmur, no edema Chest (Breasts): Chest: normal inspection of chest Gastrointestinal (Abdomen): normal bowel sounds, soft, nontender, no he patosplenomegaly Musculoskeletal: Extremities: extremities normal to inspection; no cyanosis and no clubbing Positive tenderness to palpation over left anterior rib cage under left breast Positive tenderness to palpation along entire sacrum and lumbar and thoracic spine which did cause her to feel lightheaded until she was laid flat. Skin: no rashes, warm and dry Neurologic: normal touch/pain/proprioception, CN's II-XI intact bilaterally, deep tendon reflexes 2+ bilaterally, moves all extremities and awake; no focal motor deficits Speech / Cognition: normal speech and normal cognition Psychiatric: A+Ox3, euthymic affect Lymphatic: no lymphedema Results & Data Results & Data Vital Signs (Past 12 Hours) Vital Signs Temp Pulse Pulse Resp BP Pulse Ox O2 Del Method 08/30/23 11:02 36.9 C 79 18 150/90 H 98 Room Air 08/30/23 08:00 66 08/30/23 07:41 36.5 C 65 20 119/76 99 Room Air 08/30/23 03:00 36.6 C 73 18 121/76 96 Room Air Laboratory Results CBC, BMP, hemoglobin A1c reviewed PG Care Time/CCT Total # of Minutes Spent Total Time Spent with Patient: Total time spent is greater than 50% in coordination of care (as documented) at patient's floor/unit and/or counseling patient: Coding Level of Care Code 06324 SUB INP/OBS CARE 3/50MIN Diagnoses Stroke-like symptoms R29.90 Hypertension I10 Asthma J45.909 Anxiety F41.9 Migraine syndrome G43.909 Syncope and collapse R55 Neck pain M54.2 Lower back pain M54.50 Left-sided chest wall pain R07.89
[2023-08-30] MEDS: GABAPENTIN 100 MG CAP PO SCH ×2 (14:57→21:26)
[2023-08-30] MEDS: DICLOFENAC SOD 1% GEL 100 GM TUBE EXT SCH ×3 (16:08→21:24)
--- NOTE | 2023-08-30 20:07 | Magnetic Resonance Report ---
Exam(s): MRI C SPINE EXAM: MR Cervical Spine Without Intravenous Contrast CLINICAL HISTORY: Reason for exam: neck pain,LUE radiculopathy. TECHNIQUE: Magnetic resonance images of the cervical spine without intravenous contrast in multiple planes. COMPARISON: MRI C-spine 08/10/2023 FINDINGS: No acute fracture. No suspicious osseous lesion. No ligamentous injury. No significant spondylolisthesis. Normal cord signal. No epidural collection. Soft tissues are unremarkable. C2-3: No spinal canal or foraminal stenosis. C3-4: No spinal canal or foraminal stenosis. C4-5: No spinal canal or foraminal stenosis. C5-6: Disc osteophyte complex and left uncovertebral hypertrophy. Mild canal stenosis. Moderate left and no significant right foraminal stenosis. C6-7: No spinal canal or foraminal stenosis. C7-T1: No spinal canal or foraminal stenosis. IMPRESSION: Moderate foraminal stenosis on the left at C5-6. No significant change from the prior study. Electronically signed by: Lenny Pedroza MD 08/30/23 20:06 PM
--- NOTE | 2023-08-30 20:12 | Magnetic Resonance Report ---
Exam(s): MRI L SPINE Without Contrast EXAM: MR Lumbar Spine Without Intravenous Contrast CLINICAL HISTORY: Reason for exam: lower back pain, paresthesias LLE. TECHNIQUE: Magnetic resonance images of the lumbar spine without intravenous contrast in multiple planes. COMPARISON: MRI 07/11/2019 FINDINGS: No acute fracture. No spondylolisthesis. Normal appearance of the distal cord which terminates at L1. No epidural collection. No infectious changes. Paraspinous soft tissues are unremarkable. T12-L1:. No spinal canal or foraminal stenosis. L1-L2: No spinal canal or foraminal stenosis. L2-L3: No spinal canal or foraminal stenosis. L3-L4: Trace diffuse disc bulge. Mild canal stenosis. Mild bilateral foraminal stenosis. L4-L5: Trace diffuse disc bulge. No spinal canal stenosis. Mild bilateral foraminal stenosis. L5-S1: Annular fissuring and trace diffuse disc bulge. No spinal canal stenosis. Mild facet arthropathy. No foraminal stenosis. IMPRESSION: Mild degenerative changes at L3-4 through L5-S1. No significant stenosis. Electronically signed by: Lenny Pedroza MD 08/30/23 20:11 PM
[2023-08-30] MEDS: MONTELUKAST SODIUM 10 MG TABLET PO SCH (21:27)
[2023-08-30] MEDS: ACETAMINOPHEN 325 MG TAB PO PRN (23:17)
[2023-08-31] MEDS: DOCUSATE SODIUM 100 MG CAP PO SCH ×2 (08:51→20:22)
[2023-08-31] MEDS: METHOCARBAMOL 750 MG TABLET PO PRN (08:52)
[2023-08-31] MEDS: KETOROLAC TROMETHAMINE 15 MG/ML VIAL IV PRN ×3 (08:52→22:23)
[2023-08-31] MEDS: ONDANSETRON INJ 2 MG/ML 2 ML VIAL IV PRN (08:52)
[2023-08-31] MEDS: DICLOFENAC SOD 1% GEL 100 GM TUBE EXT SCH ×4 (08:53→20:20)
[2023-08-31] MEDS: DULoxetine HCL 30 MG CAP PO SCH (08:54)
[2023-08-31] MEDS: MAGNESIUM OXIDE 400 MG TAB PO SCH ×2 (08:54→20:22)
[2023-08-31] MEDS: predniSONE 20 MG TAB PO SCH (08:54)
[2023-08-31] MEDS: LOSARTAN POTASSIUM 50 MG TAB PO SCH (08:54)
[2023-08-31] MEDS: FLUTICASONE/VILANTEROL 200/25MCG 14 PUFFS/INHALER INH SCH (08:55)
[2023-08-31] MEDS: GABAPENTIN 100 MG CAP PO SCH ×3 (08:55→20:22)
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
--- NOTE | 2023-08-31 15:19 | Hospitalist Progress Note ---
Date of Service August 31, 2023 Assessment & Plan (1) Stroke-like symptoms: Plan: 38yo female presenting with episodes of reduced consciousness, slurred speech and headache along with severe pain from the sacrum all the way up to her neck after feeling something pop in her rectal region during intercourse. She has had extensive brain imaging including CT head, CTA Head/Neck which were negative. She had a recent Brain MRI and C-spine MRI 2 weeks ago which were l argely unremarkable except for some marrow edema at C5-6. Prior workup includes normal lipid panel on 07/29/23, normal TSH. Patient also has some acute on chronic left thorax pain for which she has seen pain management in the last year Her neurologic exam is completely normal Appreciate neurology consultation-thinks related to migraine versus somatization from anxiety-recommends starting prednisone 60 mg once daily x 4 days, gabapentin 100 Mg p.o. 3 times daily, magnesium 400 Mg p.o. twice daily, and considering psychiatric consultation. Neurology does not think she needs any further workup for stroke and I agree with this. Her headaches also seem to of started in July when her blood pressures were noted to be elevated-blood pressure control as below. Has developed chronic daily headache. Feel her lightheadedness and potentially brief loss of consciousness is vasovagal syncope secondary to pain in her back and neck-treat the pain and hopefully this will resolve-no further events since admission No events on telemetry thus far and she had a normal cardiac workup 2 weeks ago. 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 MRI Lumbar spine no significant findings Suspect somatization but will recommend EMG/NCS of all four extremities as she has complaints of paresthesias, tremor, weakness, and pain in all four extremities B12 level is low normal at 283 although this would not cause acute symptoms- however, will replace with IM B12 Lyme negative, TSH normal Consult PT and will need outpt PT for cervical radiculopathy Appreciate Ortho SPine consult-no surgery needed, consider soft neck collar, PT, and Pain Management I advised returning to Dr. Frias for OMT which she reports worked well for her in the past for multiple ailments (2) Hypertension: Plan: Continues with elevated blood pressures potentially contributing to her headaches. Patient has been started on Losartan fairly recently as well as PRN Clonidine for when her BP is > 180mmHg. She reports taking the Clonidine 2-3 times since her recent discharge from the hospital. LVH is present on recent echo as well -Telemetry monitoring is unrevealing -Continue Losartan 50mg po daily and consider increasing to 100 mg daily-her renal function is normal and abdominal CT angiogram reveals normal renal arteries without stenoses -Clonidine PRN -will add on amlodipine 5mg po hs (3) Asthma: Plan: Chronic. Overall well controlled -Continue Albuterol PRN -Continue Fluticasone/Vilanterol (4) Anxiety: Plan: Chronic. Consideration to anxiety playing a role in patient's current constellation of symptoms? -Continue Duloxetine 30mg po qAM and consider increasing dose as outpt -Continue Hydroxyzine PRN (5) Migraine syndrome: Plan: As noted above (6) Syncope and collapse: Plan: As noted above (7) Neck pain: Plan: As noted above, with C-spine MRI with C5-6 HNP w/ left foraminal stenosis Started Voltaren gel and heating pad Started gabapentin and will increase dose to 200mg po tid Continue prednisone 60 mg po daily x 4 days as per Neuro recommendation for migraine PT eval ordered for here and will need outpt PT (8) Lower back pain: Plan: As above Checked lumbar spine MRI and essentially normal Starting gabapentin and titrating up (9) Left-sided chest wall pain: Plan: Acute on chronic Seen by pain management in the past and offered intercostal injections which she never rescheduled as she was nervous Plan DVT prophylaxis-SCDs Disposition-continued stay for pain control Admission and Anticipated Discharge Date Admission Date: August 29, 2023 Subjective Feeling overall better since admission. Still has c/o tingling sensation in bilateral cheeks and a "fire" sensation in her head. ALso feels jittery all over and like she's not as strong as she usually is. Still with a headache but is somewhat improved. Feels like there is something going on with her nervous system that hasn't been diagnosed. Tele with NSR rates 70-90s Review of Systems Review of Systems: no BM since admission Physical Exam Constitutional: WD/WN, vitals as above Neck: trachea midline, no thyromegaly Respiratory: normal respiratory effort, lungs clear to auscultation Cardiovascular: RRR, no murmur, no edema Chest (Breasts): Chest: normal inspection of chest Musculoskeletal: Extremities: extremities normal to inspection; no cyanosis and no clubbing Skin: no rashes, warm and dry Neurologic: moves all extremities and awake; no focal motor deficits Speech / Cognition: normal speech and normal cognition Psychiatric: A+Ox3, euthymic affect Lymphatic: no lymphedema Results & Data Results & Data Vital Signs (Past 12 Hours) Vital Signs Temp Pulse Resp BP Pulse Ox O2 Del Method 08/31/23 12:10 37.0 C 82 17 147/89 H 99 Room Air 08/31/23 08:16 36.8 C 81 17 135/87 100 Room Air Laboratory Results no labs Diagnostic Findings MRI C-spine and L-spine reviewed PG Care Time/CCT Total # of Minutes Spent Total Time Spent with Patient: Total time spent is greater than 50% in coordination of care (as documented) at patient's floor/unit and/or counseling patient: Coding Level of Care Code 40289 SUB INP/OBS CARE 3/50MIN Diagnoses Stroke-like symptoms R29.90 Hypertension I10 Asthma J45.909 Anxiety F41.9 Migraine syndrome G43.909 Syncope and collapse R55 Neck pain M54.2 Lower back pain M54.50 Left-sided chest wall pain R07.89
[2023-08-31] MEDS ORDERED: GABAPENTIN 100 MG CAP PO ONE (15:20)
[2023-08-31] MEDS: ACETAMINOPHEN 325 MG TAB PO PRN (20:20)
[2023-08-31] MEDS: MONTELUKAST SODIUM 10 MG TABLET PO SCH (20:22)
[2023-08-31] MEDS: amLODIPine BESYLATE 5 MG TAB PO SCH (23:01)
[2023-09-01] MEDS: DULoxetine HCL 30 MG CAP PO SCH (08:04)
[2023-09-01] MEDS: LOSARTAN POTASSIUM 50 MG TAB PO SCH (08:05)
[2023-09-01] MEDS: predniSONE 20 MG TAB PO SCH (08:06)
[2023-09-01] MEDS ORDERED: CYANOCOBALAMIN 1000 MCG/ML VIAL IM SCH (09:00)
[2023-09-01] MEDS: MAGNESIUM OXIDE 400 MG TAB PO SCH ×2 (09:17→20:45)
[2023-09-01] MEDS: GABAPENTIN 100 MG CAP PO SCH ×2 (09:18→14:57)
[2023-09-01] MEDS: DOCUSATE SODIUM 100 MG CAP PO SCH ×2 (09:19→20:48)
[2023-09-01] MEDS: METHOCARBAMOL 750 MG TABLET PO PRN (09:20)
[2023-09-01] MEDS: DICLOFENAC SOD 1% GEL 100 GM TUBE EXT SCH ×4 (09:20→22:27)
[2023-09-01] MEDS: FLUTICASONE/VILANTEROL 200/25MCG 14 PUFFS/INHALER INH SCH (09:21)
[2023-09-01] MEDS: KETOROLAC TROMETHAMINE 15 MG/ML VIAL IV PRN ×2 (09:38→22:27)
[2023-09-01] MEDS: ONDANSETRON INJ 2 MG/ML 2 ML VIAL IV PRN (13:23)
[2023-09-01] MEDS: ACETAMINOPHEN 325 MG TAB PO PRN ×2 (13:24→20:43)
--- NOTE | 2023-09-01 15:01 | Hospitalist Progress Note ---
Date of Service September 01, 2023 Assessment & Plan (1) Stroke-like symptoms: Plan: 38yo female presenting with episodes of reduced consciousness, slurred speech and headache along with severe pain from the sacrum all the way up to her neck after feeling something pop in her rectal region during intercourse. She has had extensive brain imaging including CT head, CTA Head/Neck which were negative. She had a recent Brain MRI and C-spine MRI 2 weeks ago which were l argely unremarkable except for some marrow edema at C5-6. Prior workup includes normal lipid panel on 07/29/23, normal TSH. Patient also has some acute on chronic left thorax pain for which she has seen pain management in the last year Her neurologic exam is completely normal Appreciate neurology consultation-thinks related to migraine versus somatization from anxiety-recommends starting prednisone 60 mg once daily x 4 days, gabapentin 100 Mg p.o. 3 times daily, magnesium 400 Mg p.o. twice daily, and considering psychiatric consultation. Neurology does not think she needs any further workup for stroke and I agree with this. Her headaches also seem to have started in July when her blood pressures were noted to be elevated-blood pressure control as below. Has developed chronic daily headache. Feel her lightheadedness and potentially brief loss of consciousness is vasovagal syncope secondary to pain in her back and neck-treat the pain and hopefully this will resolve-no further events since admission No events on telemetry thus far and she had a normal cardiac workup 2 weeks ago. 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 MRI Lumbar spine no significant findings Suspect somatization versus multiple neurologic complaints from headache, but will recommend EMG/NCS of all four extremities as she has complaints of paresthesias, tremor, weakness, and pain in all four extremities B12 level is low normal at 283 although this would not cause acute symptoms- however, will replace with IM B12 x 1 and then start on oral B12 supplement Lyme negative, TSH normal -Consult PT appreciated and will need outpt PT for cervical radiculopathy -Appreciate Ortho SPine consult-no surgery needed, consider soft neck collar, PT, and Pain Management referral as an outpatient if desired -I advised returning to Dr. Frias for OMT which she reports worked well for her in the past for multiple ailments -Plan for EMG/NCS-scheduled for next Tuesday (2) Migraine syndrome: Plan: As noted above, seems to be improving but headache is persisting. Seems more like a tension headache MRI brain -[address] angiogram head and neck negative Complete prednisone course tomorrow Increase gabapentin to 300 Mg p.o. 3 times daily Increase methocarbamol to 750 Mg p.o. 3 times daily scheduled rather than as needed as her headache seems to worsen from neck pain and stiffness Continue Toradol as needed (3) Syncope and collapse: Plan: As noted above (4) Anxiety: Plan: Chronic. Consideration to anxiety playing a role in patient's current constellation of symptoms? 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 Started Voltaren gel and heating pad Started gabapentin and will increase dose again to 300mg po tid Continue prednisone 60 mg po daily x 4 days as per Neuro recommendation for migraine PT eval ordered for here and will need outpt PT Make methocarbamol scheduled 3 times daily (6) Lower back pain: Plan: As above Checked lumbar spine MRI and essentially normal Starting gabapentin and titrating up (7) Left-sided chest wall pain: Plan: Acute on chronic, secondary to C5-6 left neuroforaminal stenosis with HNP Seen by pain management in the past and offered intercostal injections which she never rescheduled as she was nervous (8) Hypertension: Plan: Continues with elevated blood pressures potentially contributing to her head aches. Patient has been started on Losartan fairly recently as well as PRN Clonidine for when her BP is > 180mmHg. She reports taking the Clonidine 2-3 times since her recent discharge from the hospital. LVH is present on recent echo as well Blood pressures remain elevated at times although overall improved with adding amlodipine -Continue Losartan 50mg po daily and consider increasing to 100 mg daily-her renal function is normal and abdominal CT angiogram reveals normal renal arteries without stenoses -Clonidine PRN -Added on amlodipine 5mg po hs (9) Asthma: Plan: Chronic. Overall well controlled -Continue Albuterol PRN -Continue Fluticasone/Vilanterol Plan DVT prophylaxis-SCDs Disposition-continued stay for pain control but hopefully discharge tomorrow Admission and Anticipated Discharge Date Admission Date: August 31, 2023 Subjective Patient reports headache was feeling much better but then this morning she tried taking the neck soft collar off and felt like without the support of the neck collar, her headache got much worse so it definitely is positional. She is still feeling some of the tingling and numbness on both of her cheeks on the face that seems to be associated with tingling in her head from her headache. She definitely thinks her blood pressures are higher when her headache is hurting worse. She still feels a little bit jittery at times. Overall feels better but does not quite feel ready to go home yet. She did ambulate with physical therapy today. Telemetry with normal sinus rhythm with rates in the 60s to 80s Physical Exam Constitutional: WD/WN, vitals as above Neck: trachea midline, no thyromegaly Respiratory: normal respiratory effort, lungs clear to auscultation Cardiovascular: RRR, no murmur, no edema Chest (Breasts): Chest: normal inspection of chest Musculoskeletal: Extremities: extremities normal to inspection; no cyanosis and no clubbing Skin: no rashes, warm and dry Neurologic: moves all extremities and awake; no focal motor deficits Speech / Cognition: normal speech and normal cognition Psychiatric: A+Ox3, euthymic affect Results & Data Results & Data Vital Signs (Past 12 Hours) Vital Signs Temp Pulse Pulse Resp BP Pulse Ox O2 Del Method 09/01/23 11:28 36.9 C 92 H 20 164/97 H 96 Room Air 09/01/23 07:34 36.7 C 76 16 148/93 H 100 Room Air 09/01/23 07:23 63 09/01/23 05:00 36.6 C 71 18 126/81 98 Room Air PG Care Time/CCT Total # of Minutes Spent Total Time Spent with Patient: Total time spent is greater than 50% in coordination of care (as documented) at patient's floor/unit and/or counseling patient: Coding Level of Care Code 57377 SUB INP/OBS CARE 3/50MIN Diagnoses Stroke-like symptoms R29.90 Migraine syndrome G43.909 Syncope and collapse R55 Anxiety F41.9 Neck pain M54.2 Lower back pain M54.50 Left-sided chest wall pain R07.89 Hypertension I10 Asthma J45.909
[2023-09-01] MEDS ORDERED: GABAPENTIN 100 MG CAP PO ONE (15:03)
[2023-09-01] MEDS: METHOCARBAMOL 750 MG TABLET PO SCH ×2 (16:28→20:46)
[2023-09-01] MEDS: amLODIPine BESYLATE 5 MG TAB PO SCH (20:44)
[2023-09-01] MEDS: GABAPENTIN 300 MG CAP PO SCH (20:45)
[2023-09-01] MEDS: MONTELUKAST SODIUM 10 MG TABLET PO SCH (20:46)
[2023-09-02] MEDS: ACETAMINOPHEN 325 MG TAB PO PRN (05:27)
[2023-09-02] MEDS ORDERED: CYANOCOBALAMIN (B-12) 500 MCG TABLET PO SCH (09:00)
[2023-09-02] MEDS: DICLOFENAC SOD 1% GEL 100 GM TUBE EXT SCH ×2 (09:14→13:03)
[2023-09-02] MEDS: predniSONE 20 MG TAB PO SCH (09:14)
[2023-09-02] MEDS: DOCUSATE SODIUM 100 MG CAP PO SCH (09:14)
[2023-09-02] MEDS: LOSARTAN POTASSIUM 50 MG TAB PO SCH (09:15)
[2023-09-02] MEDS: METHOCARBAMOL 750 MG TABLET PO SCH ×2 (09:15→13:03)
[2023-09-02] MEDS: DULoxetine HCL 30 MG CAP PO SCH (09:15)
[2023-09-02] MEDS: MAGNESIUM OXIDE 400 MG TAB PO SCH (09:15)
[2023-09-02] MEDS: GABAPENTIN 300 MG CAP PO SCH ×2 (09:16→13:04)
[2023-09-02] MEDS: FLUTICASONE/VILANTEROL 200/25MCG 14 PUFFS/INHALER INH SCH (09:16)
--- NOTE | 2023-09-02 11:25 | Discharge Summary ---
Discharge Summary Date of Service September 02, 2023 Notes For Next Care Provider Medication Changes From Visit Added gabapentin 300mg po tid Added methocarbamol 750mg po tid scheduled Added Voltaren gel to neck and lower back Added amlodipine 5mg po hs Added B12 1000mcg po daily Added magnesium 400mg po bid Added prednisone taper over next 4 days Added acetaminophen 650mg po q6h prn pain Added Zofran 4mg po q6h prn nausea Admission HPI Per Admitting Provider Mallika Muñoz is a 38yo female with history of HTN, Asthma, Anxiety/Depression and Thrombocytosis presenting with multiple complaints. Patient was admitted to [facility] from 08/10/23 - 08/12/23 after presenting with left jaw pain and chest discomfort. She had a negative workup including troponins and a stress echocardiogram performed which was negative for inducible ischemia. She was found to have degenerative disc disease at C5-C6 with marrow edema thought to be secondary to acute injury. CT Head, CTA Head and Neck and MRI of the brain were unremarkable with no acute findings. She was ultimately discharged home on PRN Clonidine as well as Solumedrol. She presented to the ER earlier today after experiencing a popping sensation in her mid abdomen with a tearing sensation into her chest and head which occurred during intercourse. Patient hypotensive on arrival. She had a CTA of the Chest and Abdomen which were largely unremarkable, no dissection or aneurysm. She also had a negative doppler of the LLE. She was ultimately discharged home. She returns to the ER this evening at the request of her PCP. Patient reports that she has been having recurrent episodes of slurred speech, headache and altered consciousness. These episodes last approximately 12-15 minutes and occur several times during the day. She also reports migratory numbness and tingling as well as burning "fiery" sensation involving her hands, feet, thighs. She has intermittent headache as well. No reported seizure. No com plaint of fever, chest pain, cough or SOB. is at bedside and denies seizure activity. In the ER she is afebrile, hypertensive otherwise HD stable ER Course: NSS x 1L Methocarbamol 740mg Duloxetine 30mg Colace 100mg Singulair 10mg Losartan 50mg Principal Dx & Hospital Course #1 = Principal Diagnosis (1) Stroke-like symptoms: 38yo female presenting with episodes of reduced consciousness, slurred speech and headache along with severe pain from the sacrum all the way up to her neck after feeling something pop in her rectal region during intercourse. She has had extensive brain imaging including CT head, CTA Head/Neck which were negative. She had a recent Brain MRI and C-spine MRI 2 weeks ago which were largely unremarkable except for some marrow edema at C5-6. Prior workup includes normal lipid panel on 07/29/23, normal TSH. Patient also has some acute on chronic left thorax pain for which she has seen pain management in the last year Her neurologic exam is completely normal Appreciate neurology consultation-thinks related to migraine versus somatization from anxiety-recommends starting prednisone 60 mg once daily x 4 days, gabapentin 100 Mg p.o. 3 times daily, magnesium 400 Mg p.o. twice daily, and considering psychiatric consultation. Neurology does not think she needs any further workup for stroke and I agree with this. Her headaches also seem to have started in July when her blood pressures were noted to be elevated-blood pressure control as below. Has developed chronic daily headache likely triggered by neck pain and tension headaches Feel her lightheadedness and potentially brief loss of consciousness is vasovagal syncope secondary to pain in her back and neck-treat the pain and hopefully this will resolve-no further events since admission No events on telemetry thus far and she had a normal cardiac workup 2 weeks ago. 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 MRI Lumbar spine no significant findings Suspect somatization versus multiple neurologic complaints from headache, but will recommend EMG/NCS of all four extremities as she has complaints of paresthesias, tremor, weakness, and pain in all four extremities B12 level is low normal at 283 although this would not cause acute symptoms- however, will replace with IM B12 x 1 and then start on oral B12 supplement Lyme negative, TSH normal -Consult PT appreciated and will need outpt PT for cervical radiculopathy -Appreciate Ortho SPine consult-no surgery needed, consider soft neck collar, PT, and Pain Management referral as an outpatient if desired -I advised returning to Dr. Frias for OMT which she reports worked well for her in the past for multiple ailments -Plan for EMG/NCS-scheduled for next Tuesday (2) Migraine syndrome: As noted above, seems to be improving but headache is persisting. Seems more like a tension headache MRI brain -[address] angiogram head and neck negative Headache improving with treatment as below along with soft neck collar to keep neck from straining Complete prednisone course over 4 more days after discharge Increased gabapentin to 300 Mg p.o. 3 times daily made methocarbamol to 750 Mg p.o. 3 times daily scheduled rather than as needed as her headache seems to worsen from neck pain and stiffness continue tylenol prn continue magnesium 400mg po bid continue soft collar start outpt PT/OT and OMT (3) Syncope and collapse: As noted above (4) Anxiety: Chronic. Consideration to anxiety playing a role in patient's current constellation of symptoms? -Continue Duloxetine 30mg po qAM and consider increasing dose as outpt-she reports she was on a higher dose previously and will consider this with her PCP as an outpatient -Continue Hydroxyzine PRN (5) Neck pain: As noted above, with C-spine MRI with C5-6 HNP w/ left foraminal stenosis Started Voltaren gel and heating pad Started gabapentin and increased dose to 300mg po tid Continue prednisone burst and taper as per Neuro recommendation for migraine PT eval ordered for here and will need outpt PT Made methocarbamol scheduled 3 times daily (6) Lower back pain: As above Checked lumbar spine MRI and essentially normal Starting gabapentin and titrating up-improving continue voltaren gel (7) Left-sided chest wall pain: Acute on chronic, secondary to C5-6 left neuroforaminal stenosis with HNP Seen by pain management in the past and offered intercostal injections which she never rescheduled as she was nervous started gabapentin which will help with radiculopathy seen by Ortho spine-no surgery indicated (8) Hypertension: Continued with elevated blood pressures potentially contributing to her headaches. Patient has been started on Losartan fairly recently as well as PRN Clonidine for when her BP is > 180mmHg. She reports taking the Clonidine 2-3 times since her recent discharge from the hospital. LVH is present on recent echo as well Blood pressures remained elevated at times although overall improved with adding amlodipine -Continue Losartan 50mg po daily and consider increasing to 100 mg daily-her renal function is normal and abdominal CT angiogram reveals normal renal arteries without stenoses -Clonidine PRN -Added on amlodipine 5mg po hs -check BPs at home, f/u with PCP (9) Asthma: Chronic. Overall well controlled -Continue Albuterol PRN -Continue Fluticasone/Vilanterol Plan DVT prophylaxis-SCDs Disposition-much improved, dc to home Discharge Exam Constitutional WD/WN, vitals as above ENMT Ears: no hearing impairment, no external ear abnormality, no EAC abnormality and no TM abnormality (except couldn't fully visualize right TM due to cerumen) Neck trachea midline, no thyromegaly +TTP over cervical paraspinous muscles bilat Respiratory normal respiratory effort, lungs clear to auscultation Cardiovascular RRR, no murmur, no edema Chest (Breasts) Chest: normal inspection of chest Gastrointestinal (Abdomen) normal bowel sounds, soft, nontender, no hepatosplenomegaly Musculoskeletal Extremities: extremities normal to inspection; no cyanosis and no clubbing Skin no rashes, warm and dry Neurologic moves all extremities and awake; no focal motor deficits Speech / Cognition: normal speech and normal cognition Psychiatric A+Ox3, euthymic affect Lymphatic no lymphedema Updated Medication List Medication Instructions Recorded Confirmed Type montelukast 10 mg tablet 10 mg PO PM #0 tabs 03/25/17 08/29/23 History albuterol sulfate 90 mcg/actuation 1 puff inhalation QID PRN SOB 04/04/18 08/29/23 History aerosol inhaler (ProAir HFA) multivitamin 1 tab PO QAM 04/04/18 08/29/23 History metronidazole 0.75 % topical cream 1 applic topical DAILY PRN Rash 10/15/19 08/29/23 History (MetroCream) duloxetine 30 mg capsule,delayed 30 mg PO QAM 08/10/23 08/29/23 History release ferrous sulfate 325 mg (65 mg 325 mg PO Q OTHER DAY 08/10/23 08/29/23 History iron) tablet fluticasone 232 mcg-salmeterol 14 1 inh inhalation BID 08/10/23 08/29/23 History mcg/actuation breath activated powdr hydroxyzine HCl 25 mg tablet 25 mg PO QID PRN Anxiety 08/10/23 08/29/23 History losartan 50 mg tablet 50 mg PO DAILY 08/29/23 08/29/23 History acetaminophen 325 mg tablet 650 mg (2 x 325 mg) PO Q4H PRN 09/02/23 Rx pain #60 tabs amlodipine 5 mg tablet (Norvasc) 5 mg PO HS #30 tabs 02/02/24 Rx clonidine HCl 0.1 mg tablet 0.1 mg PO DAILY PRN hypertensive 09/02/23 08/29/23 Rx emergency SBP>180 #14 tabs cyanocobalamin (vitamin B-12) 1,000 mcg PO DAILY #30 tabs 09/02/23 Rx 1,000 mcg tablet diclofenac sodium 1 % topical gel 2 g EXT QID apply to neck and 09/02/23 Rx (Voltaren Arthritis Pain) lower back #100 grams docusate sodium 100 mg capsule 100 mg PO BID #60 caps 09/02/23 Rx gabapentin 300 mg capsule 300 mg PO TID #90 caps 09/02/23 Rx magnesium oxide 400 mg (241.3 mg 400 mg PO BID #60 tabs 09/02/23 Rx magnesium) tablet methocarbamol 750 mg tablet 750 mg PO TID .muscle spasms #90 09/02/23 Rx tabs ondansetron 4 mg disintegrating 4 mg PO Q8H PRN nausea and 09/02/23 Rx tablet vomiting #20 tabs prednisone 10 mg tablet 10 mg PO DIRECTED #10 tabs 09/02/23 Rx Hospital Stay Data Consultations 08/29/23 19:16 ED Decision to Admit Stat 08/29/23 22:43 Consult Neurology Routine 08/31/23 09:34 Consult Orthopedic Spine Surgery Routine Diagnostic Imagining Performed 08/29/23 17:17 CT angio head w con Stat CT angio neck with con Stat CT head/brain wo con Stat 08/30/23 14:44 MR cervical spine wo con Routine MRI Lumbar Spine [MR lumbar spine wo con] Routine Pending Results Patient Have Any Pending Studies at Discharge: No Discharge Instructions Given to Patient (Per Discharging Provider) Please take the prednisone taper over the next 4 days: 40mg on Tuesday, 30mg on Tuesday, 20mg on Tuesday, 10mg on Tuesday, then stop. You were started on gabapentin and methocarbamol for your neck pain and cervical radiculopathy which is triggering a chronic daily tension headache. You will need physical therapy to continue working on your pain and you can wear the soft neck collar for support as needed. You were given a prescription for outpatient physical therapy and you can call a place of your choice for this. You should also consider setting up OMT sessions with Dr. Altagracia again as you had success with this in the past. Continue the voltaren gel topically to the neck and lower back. You can also take ibuprofen sparingly and acetaminophen prn pain. You were set up for a nerve conduction study with Neurology for next week to assess for neuropathies causing your tingling and painful sensations in your extremities. For your high blood pressures, you were started on a second medication called amlodipine which seems to be really helping. Keep track of your blood pressures at home and follow up with your PCP regarding all of your issues. You were having episodes of passing out from vasovagal syncope which is related to the pain you were having. Your workup of your heart has been completely normal. Total Time Total Time Spent Total Time Spent (In Minutes): 60 min Coding Level of Care Code 67263 INP/OBS DISCH >30 MIN Diagnoses Stroke-like symptoms R29.90 Migraine syndrome G43.909 Syncope and collapse R55 Anxiety F41.9 Neck pain M54.2 Lower back pain M54.50 Left-sided chest wall pain R07.89 Hypertension I10 Asthma J45.909
[2023-09-02] MEDS: ONDANSETRON INJ 2 MG/ML 2 ML VIAL IV PRN (12:42)
[2023-09-02] MEDS: KETOROLAC TROMETHAMINE 15 MG/ML VIAL IV PRN (13:03)
== END 2023-09-02 16:52 | disposition home or self-care (01) | DRG 882 ==
LOC: ED 17:10 → 2N 17:10 → SUATTDRO 20:13 → 2N 21:37
DX: J45.909 Unspecified asthma, uncomplicated; G43.909 Migraine, unspecified, not intractable, without status migrainosus; M79.605 Pain in left leg; R10.9 Unspecified abdominal pain; F32.A Depression, unspecified; F45.0 Somatization disorder; X58.XXXA Exposure to other specified factors, initial encounter; Z79.899 Other long term (current) drug therapy; R07.9 Chest pain, unspecified; I10 Essential (primary) hypertension; F41.9 Anxiety disorder, unspecified